=== PATIENT | male | born 1960 | race Caucasian/White ===

== ENCOUNTER → 2019-03-15 11:03 | Outpatient (CLI) | payer OTHER, MEDICAID, SELFPAY ==
[2018-04-09 16:08] VITALS: BMI 35.7
[2019-03-15 12:34] LABS: Hematocrit 48.5 % (41-53); Mean Corpuscular Hemoglobin 28.5 PG (26-34); Mean Corpuscular Volume 86.5 fL (80-100); Platelet Count 204 X10^3/uL (150-400); Red Cell Distribution Width 14.4 % (11.6-14.8); White Blood Cell Count 5.5 X10^3/uL (4.5-11.0)
[2019-03-15 12:38] LABS: Alanine Aminotransferase 38 IU/L (21-72); Albumin 4.7 g/dL (3.5-5.0); Albumin Globulin Ratio 1.6 (1.0-2.8); Alkaline Phosphatase 70 U/L (38-126); Aspartate Aminotransferase 30 IU/L (17-59); BUN Creatinine Ratio 21.1 (6-22); Bilirubin Total 0.5 mg/dL (0.2-1.3); Blood Urea Nitrogen 19 mg/dL (9-20); Calcium 9.3 mg/dL (8.4-10.2); Carbon Dioxide 28 mmol/L (22-32); Chloride 105 mmol/L (98-107); Cholesterol 150 mg/dL (140-199); Estimated Glomerular Filt Rate > 60.0 mL/min (>60); Glucose 100 mg/dL (70-100); HDL Cholesterol 50 mg/dL (40-60); HEMOLYSIS < 15 (0-50); LDL Cholesterol Calculated 72 mg/dL (<100); Potassium 3.8 mmol/L (3.4-5.1); Sodium 143 mmol/L (137-145); Total Protein 7.7 g/dL (6.3-8.2); Triglycerides 142 mg/dL (35-150)
[2019-03-15 12:54] LABS: Vitamin D 25 Hydroxy (D3) 29.7 ng/mL (30.0-100.0)
[2019-03-15 13:07] LABS: TSH w/ Reflex to FT4 1.45 uIU/mL (0.47-4.68)
[2019-03-15 13:24] LABS: Vitamin B12 413 pg/mL (239-931)
[2019-03-19 13:36] LABS: Lamotrigine Lamictal 2.2 mcg/mL (4.0-18.0)
[2019-03-20 16:47] LABS: Testosterone Free 34.8 pg/mL (35.0-155.0); Testosterone Total 201 ng/dL (250-1100)
== END ==
PROVIDERS: PCP Nurse Practitioner Family; Visit Provider Nurse Practitioner Family
DX: J44.9 Chronic obstructive pulmonary disease, unspecified (principal); R53.83 Other fatigue; E55.9 Vitamin D deficiency, unspecified; E78.2 Mixed hyperlipidemia; Z51.81 Encounter for therapeutic drug level monitoring
CPT/HCPCS: 36415; 80053; 80061; 80175; 82306; 82607; 84402; 84403; 84443; 85027

== ENCOUNTER → 2019-04-17 08:08 | Outpatient (CLI) | payer OTHER, MEDICAID, SELFPAY ==
[2018-04-09 16:08] VITALS: BMI 35.7
[2019-04-17 09:16] LABS: Luteinizing Hormone 3.35 mIU/mL
== END ==
PROVIDERS: PCP Nurse Practitioner Family; Visit Provider Nurse Practitioner Family
DX: R79.89 Other specified abnormal findings of blood chemistry (principal)
CPT/HCPCS: 36415; 83001; 83002; 84403

== ENCOUNTER → 2019-04-29 09:45 | Outpatient (CLI) | payer OTHER, MEDICAID, SELFPAY ==
[2018-04-09 16:08] VITALS: BMI 35.7
[2019-04-29 10:58] LABS: Prolactin 15.3 ng/mL (3.7-17.9)
[2019-04-29 11:12] LABS: Prostate Specific Antigen 0.832 ng/mL (0.10-4.00)
== END ==
PROVIDERS: Family Provider Nurse Practitioner Family; PCP Nurse Practitioner Family; Visit Provider Physician Assistant
DX: R79.89 Other specified abnormal findings of blood chemistry (principal)
CPT/HCPCS: 36415; 84146; 84153

== ENCOUNTER → 2019-08-27 07:08 | Outpatient (CLI) | payer OTHER, MEDICAID, SELFPAY ==
[2018-04-09 16:08] VITALS: BMI 35.7
[2019-08-27 08:28] LABS: Hematocrit 46.2 % (41-53); Hemoglobin 15.3 g/dL (13.5-17.5)
[2019-08-27 09:13] LABS: Cholesterol 196 mg/dL (140-199); HDL Cholesterol 50 mg/dL (40-60); LDL Cholesterol Calculated 111 mg/dL (<100); Triglycerides 173 mg/dL (35-150)
== END ==
PROVIDERS: Family Provider Nurse Practitioner Family; PCP Nurse Practitioner Family; Visit Provider Physician Assistant
DX: E29.1 Testicular hypofunction (principal)
CPT/HCPCS: 36415; 80061; 84153; 84402; 84403; 85014; 85018

== ENCOUNTER → 2020-05-11 08:50 | Outpatient (CLI) | payer OTHER, MEDICAID, SELFPAY ==
[2018-04-09 16:08] VITALS: BMI 35.7
[2020-05-11 11:24] LABS: Hematocrit 46.1 % (41-53); Hemoglobin 15.2 g/dL (13.5-17.5)
[2020-05-11 12:16] LABS: Cholesterol 142 mg/dL (140-199); HDL Cholesterol 53 mg/dL (40-60); LDL Cholesterol Calculated 60 mg/dL (<100); Triglycerides 146 mg/dL (35-150)
[2020-05-11 12:43] LABS: Prostate Specific Antigen 1.15 ng/mL (0.10-4.00)
[2020-05-11 12:46] LABS: Testosterone 139 ng/dL (71.8-623)
== END ==
PROVIDERS: Family Provider Nurse Practitioner Family; PCP Nurse Practitioner Family; Referring Provider Physician Assistant; Visit Provider Physician Assistant
DX: E29.1 Testicular hypofunction (principal)
CPT/HCPCS: 36415; 80061; 84153; 84403; 85014; 85018

== ENCOUNTER → 2020-09-10 08:08 | Outpatient (CLI) | payer OTHER, MEDICAID, SELFPAY ==
[2018-04-09 16:08] VITALS: BMI 35.7
[2020-09-10 09:16] LABS: Hematocrit 46.3 % (41-53); Hemoglobin 15.4 g/dL (13.5-17.5); Mean Corpuscular HGB Conc 33.4 % (30-36); Mean Corpuscular Hemoglobin 29.1 PG (26-34); Mean Corpuscular Volume 87.2 fL (80-100); Platelet Count 156 X10^3/uL (150-400); Red Blood Cell Count 5.31 X10^6/uL (4.5-5.9); Red Cell Distribution Width 13.9 % (11.6-14.8); White Blood Cell Count 5.2 X10^3/uL (4.5-11.0)
[2020-09-10 09:44] LABS: Alanine Aminotransferase 29 IU/L (<50); Albumin 4.1 g/dL (3.5-5.0); Albumin Globulin Ratio 1.5 (1.0-2.8); Alkaline Phosphatase 53 U/L (38-126); Aspartate Aminotransferase 37 IU/L (17-59); BUN Creatinine Ratio 20.7 (6-22); Bilirubin Total 0.9 mg/dL (0.2-1.3); Blood Urea Nitrogen 17 mg/dL (9-20); Calcium 8.7 mg/dL (8.4-10.2); Carbon Dioxide 23 mmol/L (22-32); Chloride 107 mmol/L (98-107); Cholesterol 196 mg/dL (140-199); Estimated Glomerular Filt Rate > 60.0 mL/min (>60); Globulin 2.8 g/dL (1.7-4.1); Glucose 91 mg/dL (80-110); HDL Cholesterol 50 mg/dL (40-60); LDL Cholesterol Calculated 117 mg/dL (<100); Sodium 137 mmol/L (137-145); Total Protein 6.9 g/dL (6.3-8.2); Triglycerides 143 mg/dL (35-150)
[2020-09-10 09:53] LABS: HEMOLYSIS 126 (0-50); Potassium 4.7 mmol/L (3.4-5.1)
[2020-09-13 14:08] LABS: Lamotrigine Lamictal <1.0 ug/mL (2.0-20.0)
== END ==
PROVIDERS: Family Provider Nurse Practitioner Family; PCP Nurse Practitioner Family; Referring Provider Nurse Practitioner Family; Visit Provider Nurse Practitioner Family
DX: J44.9 Chronic obstructive pulmonary disease, unspecified (principal); Z51.81 Encounter for therapeutic drug level monitoring; E78.2 Mixed hyperlipidemia
CPT/HCPCS: 36415; 80053; 80061; 80175; 85027

== ENCOUNTER → 2020-11-22 07:19 | Outpatient (CLI) | payer OTHER, MEDICAID, SELFPAY ==
[2018-04-09 16:08] VITALS: BMI 35.7
[2020-11-22 08:29] LABS: Hematocrit 45.4 % (41-53); Hemoglobin 15.5 g/dL (13.5-17.5)
[2020-11-22 08:46] LABS: Alanine Aminotransferase 25 IU/L (<50); Albumin 4.4 g/dL (3.5-5.0); Albumin Globulin Ratio 1.6 (1.0-2.8); Alkaline Phosphatase 68 U/L (38-126); Aspartate Aminotransferase 26 IU/L (17-59); BUN Creatinine Ratio 20.4 (6-22); Bilirubin Total 0.4 mg/dL (0.2-1.3); Blood Urea Nitrogen 19 mg/dL (9-20); Calcium 9.2 mg/dL (8.4-10.2); Carbon Dioxide 28 mmol/L (22-32); Chloride 104 mmol/L (98-107); Cholesterol 168 mg/dL (140-199); Estimated Glomerular Filt Rate > 60.0 mL/min (>60); Globulin 2.8 g/dL (1.7-4.1); Glucose 99 mg/dL (80-110); HDL Cholesterol 49 mg/dL (40-60); HEMOLYSIS < 15 (0-50); LDL Cholesterol Calculated 93 mg/dL (<100); Potassium 3.8 mmol/L (3.4-5.1); Sodium 138 mmol/L (137-145); Total Protein 7.2 g/dL (6.3-8.2); Triglycerides 130 mg/dL (35-150)
[2020-11-22 09:20] LABS: Testosterone 234 ng/dL (71.8-623)
[2020-11-22 09:36] LABS: Vitamin B12 Reflex MMA if <400 396 pg/mL (239-931)
[2020-11-22 19:22] LABS: TSH w/ Reflex to FT4 2.55 uIU/mL (0.47-4.68)
[2020-11-25 00:16] LABS: Methylmalonic Acid,Serum 215 nmol/L (0-378)
== END ==
PROVIDERS: Family Provider Nurse Practitioner Family; PCP Nurse Practitioner Family; Referring Provider Nurse Practitioner Family; Visit Provider Physician Assistant Medical
DX: R79.89 Other specified abnormal findings of blood chemistry (principal); R53.83 Other fatigue
CPT/HCPCS: 36415; 80053; 80061; 82607; 83921; 84153; 84403; 84443; 85014; 85018

== ENCOUNTER → 2020-11-30 07:11 | Outpatient (CLI) | payer OTHER, MEDICAID, SELFPAY ==
[2018-04-09 16:08] VITALS: BMI 35.7
[2020-12-01 08:16] LABS: Fecal Immunochemical Test Negative (Negative)
== END ==
PROVIDERS: Family Provider Nurse Practitioner Family; PCP Nurse Practitioner Family; Referring Provider Nurse Practitioner Family; Visit Provider Nurse Practitioner Family
DX: R53.83 Other fatigue (principal)
CPT/HCPCS: 82274

== ENCOUNTER → 2021-04-22 12:05 | Outpatient (CLI) | payer OTHER, MEDICAID, SELFPAY ==
[2018-04-09 16:08] VITALS: BMI 35.7
--- NOTE | 2021-04-22 12:07 | DI.RAD.S_ITS ---
PROCEDURE: XR LUMBAR SPINE 2-3V INDICATIONS: low back pain with L sciatica TECHNIQUE: 3 views of the lumbar spine were acquired. COMPARISON: None. FINDINGS: Bones: No acute fracture identified. Straightening of the normal lordotic curvature. Multilevel degenerative endplate sclerosis and spurring. Diffuse facet arthropathy. Moderate narrowing of the L4-L5 and L5-S1 disc spaces. Mild narrowing of the remaining lumbar disc spaces. Levoscoliosis is noted centered at L3. Soft tissues: Overlying bowel gas pattern is normal. No suspicious soft tissue calcifications. IMPRESSION: Diffuse lumbar spondylitic changes most pronounced at L4-L5 and L5-S1 as above Facet arthropathy Levoscoliosis. Dictated by: Cameron Schaeffer M.D. on 04/22/2021 at 14:18 Approved by: Cameron Schaeffer M.D. on 04/22/2021 at 14:20
--- NOTE | 2021-04-22 12:07 | DI.RAD.S_ITS ---
P ROCEDURE: XR SACRUM COCCYX MIN 2V INDICATIONS: low back pain with sciatica TECHNIQUE: 3 views of the sacrum and coccyx acquired. COMPARISON: None. FINDINGS: Bones: No acute fracture identified. Lower lumbar spondylitic changes and facet arthropathy. Degenerative sclerosis and spurring at the sacroiliac joints without ankylosis or definite erosions, and no joint space narrowing. Mild bilateral hip joint degeneration. Partially visualized scoliosis. Soft tissues: Visualized bowel gas pattern is normal. No suspicious soft tissue densities. IMPRESSION: Mild bilateral hip osteoarthritis. Lumbar spondylitic changes and facet arthropathy Partially visualized scoliosis Dictated by: Cameron Schaeffer M.D. on 04/22/2021 at 14:29 Approved by: Cameron Schaeffer M.D. on 04/22/2021 at 14:33
== END ==
PROVIDERS: Family Provider Nurse Practitioner Family; PCP Nurse Practitioner Family; Referring Provider Nurse Practitioner Family; Visit Provider Nurse Practitioner Family
DX: M54.32 Sciatica, left side (principal); M47.816 Spondylosis without myelopathy or radiculopathy, lumbar region; M47.817 Spondylosis without myelopathy or radiculopathy, lumbosacral region; M16.0 Bilateral primary osteoarthritis of hip
CPT/HCPCS: 72100; 72220

== ENCOUNTER → 2021-06-02 15:26 | Outpatient (CLI) | payer OTHER, MEDICAID, SELFPAY ==
[2018-04-09 16:08] VITALS: BMI 35.7
[2021-06-02 16:26] LABS: COVID19 -Nasal RAPID Negative (Negative)
== END ==
PROVIDERS: Family Provider Nurse Practitioner Family; PCP Nurse Practitioner Family; Visit Provider Nurse Practitioner
DX: R05 Cough (principal); R53.83 Other fatigue; R06.02 Shortness of breath; R09.81 Nasal congestion; Z20.822 Contact with and (suspected) exposure to COVID-19
CPT/HCPCS: 87635

== ENCOUNTER 2021-06-09 14:00 | Outpatient (RCR) | payer OTHER, MEDICAID, SELFPAY ==
[2018-04-09 16:08] VITALS: BMI 35.7
--- NOTE | 2021-05-02 15:10 | PT.OIE ---
Current Diagnoses Unilateral primary osteoarthritis, unspecified hip (05/02/21) Sciatica, left side (05/02/21) Past Medical History (Last Updated 04/20/21 @ 16:21 by SERENITY Campbell) Abnormal chest x-ray (~2016) Anxiety Benign familial tremor (~2014) Bipolar disease, chronic Chicken pox (~1969) COPD (chronic obstructive pulmonary disease) (~2017) Depression Fractures History of recurrent ear infection (~1964) History of surgery (~2009) Kidney stones (~1994) Low testosterone in male Measles (~1966) Mixed hyperlipidemia Mumps (~1965) Sciatica of left side Seasonal allergies Sleep apnea (~2014) Stasis dermatitis Substance abuse Past Surgical History (Last Updated 04/04/19 @ 20:49 by Salma Reyes) Anesthesia History of surgery (~2009) Mass (~2015) Visit Care Team Role Provider Type SERENITY Campbell Attending Provider Advanced Echocardiograph Technician Family Provider Primary Care Provider Referring Provider Specialty: Family Practice Address: [address] [place] [address] Email: [email or web address] Physical Therapy Initial Evaluation PT-OP-A Visit Information Start: 05/02/21 11:54 Freq: Status: Active Protocol: Document 05/02/21 13:30 AMB (Rec: 05/02/21 15:10 AMB [email or web address]) Out-Patient Physical Therapy Visit Information Visit Information Visit Type Initial Evaluation Visit Note 0/24 units Visit Start Time 13:30 Visit Stop Time 14:15 Total Visit Minutes 45 Visit Number 1 PT-OP-B Current Condition Start: 05/02/21 11:54 Freq: Status: Active Protocol: Document 05/02/21 13:30 AMB (Rec: 05/02/21 15:10 AMB [email or web address]) Current Condition History of Current Condition Onset Date a couple months, insidious onset Current Complaints L sciatica with numbness/ tingling History of Current Condition Migel states twisting, rolling over to the right, and moving to sit to stand increase his pain and numbness down the back of his left leg . Coughing also makes it worse. Pain was really bad for a couple months until got pain meds from doctor and it is better now, although numbness remains. Did have a similar problem to this years ago and it got better on its own after a few months. Long history of substance/alcohol abuse but has been clean for 10 years. Lives with his elderly mom, on SS disability, previously in landscaping with lots of physical labor. Prior Treatments and Tests X-rays showed disc space narrowing and levoscoliosis Prior Functional Status Baseline Function- ADL's Independent Baseline Function- Mobility Independent Current Functional Impairments (Reported) Functional Limitations- ADL's Difficulty with moving from sit to stand, rolling over in bed, numbness makes walking challenging, does walk without AD Personal Factors Other Personal Factors That May Effect Hx of substance abuse, Therapy/Recovery depression, HTN, history of diaphragm surgery PT-OP-C Subjective Start: 05/02/21 11:54 Freq: Status: Active Protocol: Document 05/02/21 13:30 AMB (Rec: 05/02/21 15:10 AMB [email or web address]) OP-PT Pain Assessment Comments Pain Comments 2/10 current in seated, 5/10 at worst in last week. 6-7/10 pain at worst PT-OP-G Mobility & Gait Start: 05/02/21 11:54 Freq: Status: Active Protocol: Document 05/02/21 13:30 AMB (Rec: 05/02/21 15:10 AMB [email or web address]) OP Mobility Evaluation Bed Mobility Rolling Pt tends to twist spine, educated in log roll at eval Supine to and from Sit Cues not to perform sit up, pt can perform log roll at eval after cues OP Gait Assessment Comments Gait Comments Pt with antalgic gait, but not foot drop noted with gait with short distances, would need to look at gait for longer distances to completely rule out PT-OP-J Posture/Palpation/Skin Start: 05/02/21 11:54 Freq: Status: Active Protocol: Document 05/02/21 13:30 AMB (Rec: 05/02/21 15:10 AMB [email or web address]) Posture Evaluation Comments Posture Comments Scoliosis convex to L Palpation Assessment Location One Palpation Location Low back/left glutes Palpation Findings Soft Tissue Tightness,Spasm, Muscle Guarding,Tenderness Palpation Details Pain with palpation at lumbar spine and gluteals PT-OP-K Range of Motion Start: 05/02/21 11:54 Freq: Status: Active Protocol: Document 05/02/21 13:30 AMB (Rec: 05/02/21 15:10 AMB [email or web address]) Lumbar Spine Range of Motion Lumbar Spine Active Degrees Testing Position Standing Flexion 30 Extension 5 Comments pain with extension PT-OP-L Special Tests Start: 05/02/21 11:54 Freq: Status: Active Protocol: Document 05/02/21 13:30 AMB (Rec: 05/02/21 15:10 AMB [email or web address]) Special Tests Lumbar Spine Special Tests Straight Leg Raise Test Results + Comments at 30 degrees PT-OP-M Strength Start: 05/02/21 11:54 Freq: Status: Active Protocol: Document 05/02/21 13:30 AMB (Rec: 05/02/21 15:10 AMB [email or web address]) Hip Strength Hip Manual Muscle Testing Left Flexion (L2) 4+ Good+ Extension (S1) 4 Good Abduction 4 Good Knee Strength Knee Manual Muscle Testing Left Flexion (S2) 4+ Good+ Extension (L3) 4+ Good+ Ankle/Foot Strength Ankle and Foot Manual Muscle Testing Left Dorsiflexion (L4) 4+ Good+ Plantarflexion (S1) 4+ Good+ PT-OP-Q Treatments Start: 05/02/21 11:54 Freq: Status: Active Protocol: Document 05/02/21 13:30 AMB (Rec: 05/02/21 15:10 AMB [email or web address]) Therapeutic Exercises Supine Exercises active hamstring Comments with PF and DF, tolerated in supine, increased pain in seated TA stabilization Comments in hooklying, cues for breathing Manual Therapy Treatment Manual Traction long axis Details L LE Comments decreased sx slightly PT-OP-T Assessment and Plan Start: 05/02/21 11:54 Freq: Status: Active Protocol: Document 05/02/21 13:30 AMB (Rec: 05/02/21 15:10 AMB [email or web address]) Physical Therapy Assessment Rehab Potential Rehabilitation Potential Good Evaluation Complexity Number of Personal Factors/Comorbidities 1-2 Number of Body Systems Impaired 4 or More Clinical Presentation at Evaluation Evolving Impairments Impairments Activity Tolerance,Gait,Pain, Posture,ROM,Sensation,Strength Goals Two Impairment pain Short Term Goal (STG) Migel will roll over in bed without an increase in pain. STG Duration 4 weeks Detention Goal (LTG) Migel will move from sit to stand with 2/10 pain or less. LTG Duration 8 weeks One Impairment ROM Short Term Goal (STG) Migel will improve his left straight leg raise to at least 45 degrees without pain to show decreased neural tension/ pain. STG Duration 4 weeks Project Lead Goal (LTG) Migel will be independent with a HEP for core stability and flexibility. LTG Duration 6 weeks Assessment Summary Assessment Migel attends physical therapy with signs and symptoms consistent with nerve compression from lumbar disc degeneration. While his pain is fortunately decreased after medication from his PCP, he continues to have pain and significant numbness in the left leg. He had poor body mechanics at evaluation, and would benefit from core stabilization training, training in body mechanics, and manual therapy to decrease the stress on his discs given his known scoliosis and history of manual labor. Physical Therapy Plan Frequency and Duration Frequency of Treatment 2x/Week Duration of Treatment 6 weeks Plan of Care Start Date 05/02/21 Plan of Care End Date 06/13/21 Therapeutic Interventions Therapeutic Interventions Gait Training,Home Exercise Program,Joint Mobilizations, Manual Therapy,Neuromuscular Re-education,Self-Care/Home Management,Therapeutic Activities,Therapeutic Exercises Modalities Cold Pack/Ice Massage,Electric Stimulation,Hot Packs, Ultrasound Next Visit Focus/Plan Next Note Type Treatment Note Next Visit Plan Progress core stability, manual therapy and HEP for lumbar decompression, working in neutral and flexion, avoiding extension for now
--- NOTE | 2021-05-02 15:11 | PT.OPPOC ---
Physical, Occupational & Speech Therapy At Located Within [facility] Current Diagnoses Unilateral primary osteoarthritis, unspecified hip (05/02/21) Sciatica, left side (05/02/21) Visit Care Team Role Provider Type SERENITY Campbell Attending Provider Advanced Wrapper Sheeter Family Provider Primary Care Provider Referring Provider Specialty: Family Practice Address: [address] [place] [address], [facility] Email: [email or web address] Plan Of Care PT-OP-T Assessment and Plan Start: 05/02/21 11:54 Freq: Status: Active Protocol: Document 05/02/21 13:30 AMB (Rec: 05/02/21 15:10 AMB [email or web address]) Physical Therapy Assessment Rehab Potential Rehabilitation Potential Good Evaluation Complexity Number of Personal Factors/Comorbidities 1-2 Number of Body Systems Impaired 4 or More Clinical Presentation at Evaluation Evolving Impairments Impairments Activity Tolerance,Gait,Pain, Posture,ROM,Sensation,Strength Goals Two Impairment pain Short Term Goal (STG) Migel will roll over in bed without an increase in pain. STG Duration 4 weeks Reliner Goal (LTG) Migel will move from sit to stand with 2/10 pain or less. LTG Duration 8 weeks One Impairment ROM Short Term Goal (STG) Migel will improve his left straight leg raise to at least 45 degrees without pain to show decreased neural tension/ pain. STG Duration 4 weeks Fdc Goal (LTG) Migel will be independent with a HEP for core stability and flexibility. LTG Duration 6 weeks Assessment Summary Assessment Migel attends physical therapy with signs and symptoms consistent with nerve compression from lumbar disc degeneration. While his pain is fortunately decreased after medication from his PCP, he continues to have pain and significant numbness in the left leg. He had poor body mechanics at evaluation, and would benefit from core stabilization training, training in body mechanics, and manual therapy to decrease the stress on his discs given his known scoliosis and history of manual labor. Physical Therapy Plan Frequency and Duration Frequency of Treatment 2x/Week Duration of Treatment 6 weeks Plan of Care Start Date 05/02/21 Plan of Care End Date 06/13/21 Therapeutic Interventions Therapeutic Interventions Gait Training,Home Exercise Program,Joint Mobilizations, Manual Therapy,Neuromuscular Re-education,Self-Care/Home Management,Therapeutic Activities,Therapeutic Exercises Modalities Cold Pack/Ice Massage,Electric Stimulation,Hot Packs, Ultrasound Next Visit Focus/Plan Next Note Type Treatment Note Next Visit Plan Progress core stability, manual therapy and HEP for lumbar decompression, working in neutral and flexion, avoiding extension for now Plan of Care Dates Plan of Care Start Date 05/02/21 Plan of Care End Date 06/13/21 Electronically Signed by: Zoila Reid, PT 05/02/21 0563 Please Sign and Return: I have reviewed this Plan of Care and certify that the skilled therapy services above are required to meet the patient?s needs. Physician Signature Date Printed Name and Credentials Clinical Instructor Signature Printed Name and Credentials
--- NOTE | 2021-05-06 13:46 | PT.OTN ---
Current Diagnoses Unilateral primary osteoarthritis, unspecified hip (05/06/21) Sciatica, left side (05/06/21) Physical Therapy Treatment Note PT-OP-A Visit Information Start: 05/02/21 11:54 Freq: Status: Active Protocol: Document 05/06/21 13:03 SP (Rec: 05/06/21 13:49 SP [id number]) Out-Patient Physical Therapy Visit Information Visit Information Visit Type Treatment Note Visit Note 10/17 units Visit Start Time 13:03 Visit Stop Time 13:46 Total Visit Minutes 43 Visit Number 2 Number of HAIR SPINNER Visits 1 PT-OP-B Current Condition Start: 05/02/21 11:54 Freq: Status: Active Protocol: Document 05/02/21 13:30 AMB (Rec: 05/02/21 15:10 AMB [email or web address]) Current Condition History of Current Condition Onset Date a couple months, insidious onset Current Complaints L sciatica with numbness/ tingling History of Current Condition Migel states twisting, rolling over to the right, and moving to sit to stand increase his pain and numbness down the back of his left leg . Coughing also makes it worse. Pain was really bad for a couple months until got pain meds from doctor and it is better now, although numbness remains. Did have a similar problem to this years ago and it got better on its own after a few months. Long history of substance/alcohol abuse but has been clean for 10 years. Lives with his elderly mom, on SS disability, previously in [employer] with lots of physical labor. Prior Treatments and Tests X-rays showed disc space narrowing and levoscoliosis Prior Functional Status Baseline Function- ADL's Independent Baseline Function- Mobility Independent Current Functional Impairments (Reported) Functional Limitations- ADL's Difficulty with moving from sit to stand, rolling over in bed, numbness makes walking challenging, does walk without AD Personal Factors Other Personal Factors That May Effect Hx of substance abuse, Therapy/Recovery depression, HTN, history of diaphragm surgery PT-OP-C Subjective Start: 05/02/21 11:54 Freq: Status: Active Protocol: Document 05/06/21 13:03 SP (Rec: 05/06/21 13:49 SP [id number]) OP-PT Subjective Patient Comments Patient Comments Pt stated today his L hip pain almost gone and good past few days. Still L leg still numb feeling whole leg with more concentration whole but cheek. PT-OP-G Mobility & Gait Start: 05/02/21 11:54 Freq: Status: Active Protocol: Document 05/02/21 13:30 AMB (Rec: 05/02/21 15:10 AMB [email or web address]) OP Mobility Evaluation Bed Mobility Rolling Pt tends to twist spine, educated in log roll at eval Supine to and from Sit Cues not to perform sit up, pt can perform log roll at eval after cues OP Gait Assessment Comments Gait Comments Pt with antalgic gait, but not foot drop noted with gait with short distances, would need to look at gait for longer distances to completely rule out PT-OP-J Posture/Palpation/Skin Start: 05/02/21 11:54 Freq: Status: Active Protocol: Document 05/02/21 13:30 AMB (Rec: 05/02/21 15:10 AMB [email or web address]) Posture Evaluation Comments Posture Comments Scoliosis convex to L Palpation Assessment Location One Palpation Location Low back/left glutes Palpation Findings Soft Tissue Tightness,Spasm, Muscle Guarding,Tenderness Palpation Details Pain with palpation at lumbar spine and gluteals PT-OP-K Range of Motion Start: 05/02/21 11:54 Freq: Status: Active Protocol: Document 05/02/21 13:30 AMB (Rec: 05/02/21 15:10 AMB [email or web address]) Lumbar Spine Range of Motion Lumbar Spine Active Degrees Testing Position Standing Flexion 30 Extension 5 Comments pain with extension PT-OP-L Special Tests Start: 05/02/21 11:54 Freq: Status: Active Protocol: Document 05/02/21 13:30 AMB (Rec: 05/02/21 15:10 AMB [email or web address]) Special Tests Lumbar Spine Special Tests Straight Leg Raise Test Results + Comments at 30 degrees PT-OP-M Strength Start: 05/02/21 11:54 Freq: Status: Active Protocol: Document 05/02/21 13:30 AMB (Rec: 05/02/21 15:10 AMB [email or web address]) Hip Strength Hip Manual Muscle Testing Left Flexion (L2) 4+ Good+ Extension (S1) 4 Good Abduction 4 Good Knee Strength Knee Manual Muscle Testing Left Flexion (S2) 4+ Good+ Extension (L3) 4+ Good+ Ankle/Foot Strength Ankle and Foot Manual Muscle Testing Left Dorsiflexion (L4) 4+ Good+ Plantarflexion (S1) 4+ Good+ PT-OP-Q Treatments Start: 05/02/21 11:54 Freq: Status: Active Protocol: Document 05/06/21 13:03 SP (Rec: 05/06/21 13:49 SP [id number]) Therapeutic Exercises Supine Exercises leg lengthener Supine Exercise Name LEs //- added to HEP no pain or tingling Side bilateral Resistance AROM- L more than R Comments cued netural pelvic, push heel away from hip but supported on table- pirformis stretch Supine Exercise Name foot over opposite knee relax, then hip IR stretch Side left Reps/Minutes 30 x2 Comments cued use UE for support and active hamstring Supine Exercise Name HEP review Side left Equipment Used towel hold behind thigh for support Reps/Minutes 5 PF/DF AP x3 sets Comments cued set up and proper form, tolerated in supine TA stabilization Supine Exercise Name TA and pelvic tilts Reps/Minutes 10 hold x10 Comments PPT>neutral pelvis w/ TA awareness, in hooklying, cues for breathing Standing Exercises self STMs Standing Exercise Name racquetball roll pirformis roll at wall Reps/Minutes 30 sec but within tolerance- no change in tingling into leg , always stand Comments good feedback response, loosens up muscle but does still feel tingling Manual Therapy Treatment Soft Tissue Mobilization L LE STMs Body Location pirformis, glut med, TFL Mobilization Type Rolling,Strumming,Sustained Pressure Intensity/Depth Moderate Body Position Sidelying Comments good feedback response PT-OP-T Assessment and Plan Start: 05/02/21 11:54 Freq: Status: Active Protocol: Document 05/06/21 13:03 SP (Rec: 05/06/21 13:49 SP [id number]) Physical Therapy Assessment Goals Two Impairment pain Short Term Goal (STG) Migel will roll over in bed without an increase in pain. STG Duration 4 weeks Correction Goal (LTG) Migel will move from sit to stand with 2/10 pain or less. LTG Duration 8 weeks One Impairment ROM Short Term Goal (STG) Migel will improve his left straight leg raise to at least 45 degrees without pain to show decreased neural tension/ pain. STG Duration 4 weeks Correction Goal (LTG) Migel will be independent with a HEP for core stability and flexibility. LTG Duration 6 weeks Assessment Summary Assessment Pt responded well to manual, no worsening response to self STMs racquetball on wall for self application, states not pain but still has numbess in LLE but constant when ever standing and WB on LLE. Pt found best relief with long leg axis manual traction and good carryover to initiated leg lengtheners no pain or LLE tingling so added to HEP. Reviewed HEP TA pelvic tilts, neutral pelvis and HS stretching with use of towel to grasp posterior leg better and added pirformis stretch with noted tightness initially then lessened L hip tightness . Pt walked with decreased antalgic gait leaving. Physical Therapy Plan Frequency and Duration Frequency of Treatment 2x/Week Duration of Treatment 6 weeks Plan of Care Start Date 05/02/21 Plan of Care End Date 06/13/21 Therapeutic Interventions Therapeutic Interventions Gait Training,Home Exercise Program,Joint Mobilizations, Manual Therapy,Neuromuscular Re-education,Self-Care/Home Management,Therapeutic Activities,Therapeutic Exercises Modalities Cold Pack/Ice Massage,Electric Stimulation,Hot Packs, Ultrasound Next Visit Focus/Plan Next Note Type Treatment Note Next Visit Plan Assess response to HS with AP, piformis stretch, TA leg lengtheners and self STMs w/ racketball on wall last tx. POC: Progress core stability, manual therapy and HEP for lumbar decompression, working in neutral and flexion, avoiding extension for now
--- NOTE | 2021-05-09 14:41 | PT.OTN ---
Current Diagnoses Unilateral primary osteoarthritis, unspecified hip (05/09/21) Sciatica, left side (05/09/21) Physical Therapy Treatment Note PT-OP-A Visit Information Start: 05/02/21 11:54 Freq: Status: Active Protocol: Document 05/09/21 13:30 AMB (Rec: 05/09/21 14:09 AMB [id number]) Out-Patient Physical Therapy Visit Information Visit Information Visit Type Treatment Note Visit Note 624 units today Visit Start Time 13:30 Visit Stop Time 14:15 Total Visit Minutes 45 Visit Number 3 Number of CUSTOMER SALES REPRESENTATIVE Visits 0 PT-OP-B Current Condition Start: 05/02/21 11:54 Freq: Status: Active Protocol: Document 05/02/21 13:30 AMB (Rec: 05/02/21 15:10 AMB [email or web address]) Current Condition History of Current Condition Onset Date a couple months, insidious onset Current Complaints L sciatica with numbness/ tingling History of Current Condition Migel states twisting, rolling over to the right, and moving to sit to stand increase his pain and numbness down the back of his left leg . Coughing also makes it worse. Pain was really bad for a couple months until got pain meds from doctor and it is better now, although numbness remains. Did have a similar problem to this years ago and it got better on its own after a few months. Long history of substance/alcohol abuse but has been clean for 10 years. 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 Prior Treatments and Tests X-rays showed disc space narrowing and levoscoliosis Prior Functional Status Baseline Function- ADL's Independent Baseline Function- Mobility Independent Current Functional Impairments (Reported) Functional Limitations- ADL's Difficulty with moving from sit to stand, rolling over in bed, numbness makes walking challenging, does walk without AD Personal Factors Other Personal Factors That May Effect Hx of substance abuse, Therapy/Recovery depression, HTN, history of diaphragm surgery PT-OP-C Subjective Start: 05/02/21 11:54 Freq: Status: Active Protocol: Document 05/09/21 13:30 AMB (Rec: 05/09/21 14:35 AMB [id number]) OP-PT Subjective Patient Comments Patient Comments Migel states the pain is getting better, continues to note numbness, worst in the left foot with extended standing/walking. PT-OP-G Mobility & Gait Start: 05/02/21 11:54 Freq: Status: Active Protocol: Document 05/02/21 13:30 AMB (Rec: 05/02/21 15:10 AMB [email or web address]) OP Mobility Evaluation Bed Mobility Rolling Pt tends to twist spine, educated in log roll at eval Supine to and from Sit Cues not to perform sit up, pt can perform log roll at eval after cues OP Gait Assessment Comments Gait Comments Pt with antalgic gait, but not foot drop noted with gait with short distances, would need to look at gait for longer distances to completely rule out PT-OP-J Posture/Palpation/Skin Start: 05/02/21 11:54 Freq: Status: Active Protocol: Document 05/02/21 13:30 AMB (Rec: 05/02/21 15:10 AMB [email or web address]) Posture Evaluation Comments Posture Comments Scoliosis convex to L Palpation Assessment Location One Palpation Location Low back/left glutes Palpation Findings Soft Tissue Tightness,Spasm, Muscle Guarding,Tenderness Palpation Details Pain with palpation at lumbar spine and gluteals PT-OP-K Range of Motion Start: 05/02/21 11:54 Freq: Status: Active Protocol: Document 05/02/21 13:30 AMB (Rec: 05/02/21 15:10 AMB [email or web address]) Lumbar Spine Range of Motion Lumbar Spine Active Degrees Testing Position Standing Flexion 30 Extension 5 Comments pain with extension PT-OP-L Special Tests Start: 05/02/21 11:54 Freq: Status: Active Protocol: Document 05/02/21 13:30 AMB (Rec: 05/02/21 15:10 AMB [email or web address]) Special Tests Lumbar Spine Special Tests Straight Leg Raise Test Results + Comments at 30 degrees PT-OP-M Strength Start: 05/02/21 11:54 Freq: Status: Active Protocol: Document 05/02/21 13:30 AMB (Rec: 05/02/21 15:10 AMB [email or web address]) Hip Strength Hip Manual Muscle Testing Left Flexion (L2) 4+ Good+ Extension (S1) 4 Good Abduction 4 Good Knee Strength Knee Manual Muscle Testing Left Flexion (S2) 4+ Good+ Extension (L3) 4+ Good+ Ankle/Foot Strength Ankle and Foot Manual Muscle Testing Left Dorsiflexion (L4) 4+ Good+ Plantarflexion (S1) 4+ Good+ PT-OP-Q Treatments Start: 05/02/21 11:54 Freq: Status: Active Protocol: Document 05/09/21 13:30 AMB (Rec: 05/09/21 14:09 AMB [id number]) Therapeutic Exercises Supine Exercises active hamstring Supine Exercise Name HEP review Side left Equipment Used towel hold behind thigh for support Reps/Minutes 5 PF/DF AP x3 sets Comments cued set up and proper form, tolerated in supine TA stabilization Supine Exercise Name TA and pelvic tilts Reps/Minutes 10 hold x10 Comments PPT>neutral pelvis w/ TA awareness, in hooklying, cues for breathing Sidelying Exercises clamshell Reps/Minutes 10 Sitting Exercises 1 Sitting Exercise Name sit to stand Reps/Minutes 10 Comments with TA stabilization Manual Therapy Treatment Soft Tissue Mobilization L LE STMs Mobilization Type Sustained Pressure Manual Traction long axis Details L LE Comments decreased sx slightly PT-OP-T Assessment and Plan Start: 05/02/21 11:54 Freq: Status: Active Protocol: Document 05/09/21 13:30 AMB (Rec: 05/09/21 14:35 AMB [id number]) Physical Therapy Assessment Goals Two Impairment pain Short Term Goal (STG) Migel will roll over in bed without an increase in pain. STG Duration 4 weeks Mcfp Goal (LTG) Migel will move from sit to stand with 2/10 pain or less. LTG Duration 8 weeks One Impairment ROM Short Term Goal (STG) Migel will improve his left straight leg raise to at least 45 degrees without pain to show decreased neural tension/ pain. STG Duration 4 weeks It Security Analyst Goal (LTG) Migel will be independent with a HEP for core stability and flexibility. LTG Duration 6 weeks Assessment Summary Assessment Migel continued to have pain with rolling over but decreased in comparison to at eval, encouraged TA stabilization during functional activities (rolling sit to stand). Pt did have increased numbness with walking just 200ft, educated to try to avoid quick movements of the spine and to be careful ambulating over uneven terrain while dealing with numbness in foot. Physical Therapy Plan Next Visit Focus/Plan Next Note Type Treatment Note Next Visit Plan Assess pt's tolerance to sit to stand and clamshell, pt had not yet gotten a ball for selft STM
--- NOTE | 2021-05-12 13:45 | PT.OTN ---
Current Diagnoses Unilateral primary osteoarthritis, unspecified hip (05/12/21) Sciatica, left side (05/12/21) Physical Therapy Treatment Note PT-OP-A Visit Information Start: 05/02/21 11:54 Freq: Status: Active Protocol: Document 05/12/21 13:03 SP (Rec: 05/12/21 15:15 SP [id number]) Out-Patient Physical Therapy Visit Information Visit Information Visit Type Treatment Note Visit Start Time 13:03 Visit Stop Time 13:45 Total Visit Minutes 42 Visit Number 4 Number of STAYING MACHINE OPERATOR Visits 1 PT-OP-B Current Condition Start: 05/02/21 11:54 Freq: Status: Active Protocol: Document 05/02/21 13:30 AMB (Rec: 05/02/21 15:10 AMB [email or web address]) Current Condition History of Current Condition Onset Date a couple months, insidious onset Current Complaints L sciatica with numbness/ tingling History of Current Condition Migel states twisting, rolling over to the right, and moving to sit to stand increase his pain and numbness down the back of his left leg . Coughing also makes it worse. Pain was really bad for a couple months until got pain meds from doctor and it is better now, although numbness remains. Did have a similar problem to this years ago and it got better on its own after a few months. Long history of substance/alcohol abuse but has been clean for 10 years. 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 Prior Treatments and Tests X-rays showed disc space narrowing and levoscoliosis Prior Functional Status Baseline Function- ADL's Independent Baseline Function- Mobility Independent Current Functional Impairments (Reported) Functional Limitations- ADL's Difficulty with moving from sit to stand, rolling over in bed, numbness makes walking challenging, does walk without AD Personal Factors Other Personal Factors That May Effect Hx of substance abuse, Therapy/Recovery depression, HTN, history of diaphragm surgery PT-OP-C Subjective Start: 05/02/21 11:54 Freq: Status: Active Protocol: Document 05/12/21 13:03 SP (Rec: 05/12/21 15:15 SP [id number]) OP-PT Subjective Patient Comments Patient Comments Pt reported past few days noticed hasn't had any pain and tingling is alot less. I can't remember what it is like without pain but am being aware not to over do activities to go backwards. Pt stated no pain with added sit<> stand and clamshell added last tx. Patient Reported Progress Improving PT-OP-G Mobility & Gait Start: 05/02/21 11:54 Freq: Status: Active Protocol: Document 05/02/21 13:30 AMB (Rec: 05/02/21 15:10 AMB [email or web address]) OP Mobility Evaluation Bed Mobility Rolling Pt tends to twist spine, educated in log roll at eval Supine to and from Sit Cues not to perform sit up, pt can perform log roll at eval after cues OP Gait Assessment Comments Gait Comments Pt with antalgic gait, but not foot drop noted with gait with short distances, would need to look at gait for longer distances to completely rule out PT-OP-J Posture/Palpation/Skin Start: 05/02/21 11:54 Freq: Status: Active Protocol: Document 05/02/21 13:30 AMB (Rec: 05/02/21 15:10 AMB [email or web address]) Posture Evaluation Comments Posture Comments Scoliosis convex to L Palpation Assessment Location One Palpation Location Low back/left glutes Palpation Findings Soft Tissue Tightness,Spasm, Muscle Guarding,Tenderness Palpation Details Pain with palpation at lumbar spine and gluteals PT-OP-K Range of Motion Start: 05/02/21 11:54 Freq: Status: Active Protocol: Document 05/02/21 13:30 AMB (Rec: 05/02/21 15:10 AMB [email or web address]) Lumbar Spine Range of Motion Lumbar Spine Active Degrees Testing Position Standing Flexion 30 Extension 5 Comments pain with extension PT-OP-L Special Tests Start: 05/02/21 11:54 Freq: Status: Active Protocol: Document 05/02/21 13:30 AMB (Rec: 05/02/21 15:10 AMB [email or web address]) Special Tests Lumbar Spine Special Tests Straight Leg Raise Test Results + Comments at 30 degrees PT-OP-M Strength Start: 05/02/21 11:54 Freq: Status: Active Protocol: Document 05/02/21 13:30 AMB (Rec: 05/02/21 15:10 AMB [email or web address]) Hip Strength Hip Manual Muscle Testing Left Flexion (L2) 4+ Good+ Extension (S1) 4 Good Abduction 4 Good Knee Strength Knee Manual Muscle Testing Left Flexion (S2) 4+ Good+ Extension (L3) 4+ Good+ Ankle/Foot Strength Ankle and Foot Manual Muscle Testing Left Dorsiflexion (L4) 4+ Good+ Plantarflexion (S1) 4+ Good+ PT-OP-Q Treatments Start: 05/02/21 11:54 Freq: Status: Active Protocol: Document 05/12/21 13:03 SP (Rec: 05/12/21 15:15 SP [id number]) Therapeutic Exercises Supine Exercises leg lengthener Supine Exercise Name LEs //- reviewed HEP no pain or tingling Side bilateral Resistance AROM- L more than R Reps/Minutes x5- very little tingling in bottom L foot alot better Comments cued netural pelvic, push heel away from hip but supported on table active hamstring Supine Exercise Name HEP review Side left Equipment Used towel hold behind thigh for support Reps/Minutes 5 PF/DF AP x3 sets Comments cued set up and proper form, tolerated in supine TA stabilization Supine Exercise Name TA and pelvic tilts Reps/Minutes 10 hold x10 Comments PPT>neutral pelvis w/ TA awareness, in hooklying, cues for breathing Sidelying Exercises QL stretch Sidelying Exercise Name bottom leg bent, top leg straight, reach over head Side left Resistance added to HEP Equipment Used pillow under ribcage Reps/Minutes 20 x clamshell Sidelying Exercise Name reviewed HEP Reps/Minutes 10 Sitting Exercises lumbar flexion Sitting Exercise Name hip hinge- added to HEP Equipment Used painfree Reps/Minutes 10 x3 Comments pt says good back stretch, limited hip ROM noted. 1 Sitting Exercise Name sit to stand Reps/Minutes 10 Comments with TA stabilization- pain free- retro LOB but self recovery at 6th rep Standing Exercises pec stretch Standing Exercise Name added to HEP Equipment Used doorway Reps/Minutes 3 x30 sec Comments cued PPT, split stance, chin tuck, lean in various range- good response roll up wall posture Standing Exercise Name added to HEP: cued tolerant range Reps/Minutes 3 x10 sec Comments cued segmental roll up and neutral CS w/ TA LB at toward wall resisted shoulder ext Standing Exercise Name added to HEP- painfree Resistance Tb #2 Reps/Minutes 2x5 Comments cued scap depression, shld ext to side leg, chin tuck PT-OP-T Assessment and Plan Start: 05/02/21 11:54 Freq: Status: Active Protocol: Document 05/12/21 13:03 SP (Rec: 05/12/21 15:15 SP [id number]) Physical Therapy Assessment Goals Two Impairment pain Short Term Goal (STG) Migel will roll over in bed without an increase in pain. 05/12/21: goal met: has been several days since having pain . STG Duration met Suit Attendant Goal (LTG) Migel will move from sit to stand with 2/10 pain or less. 05/12/21: goal met: has been several days since having pain . LTG Duration met One Impairment ROM Short Term Goal (STG) Migel will improve his left straight leg raise to at least 45 degrees without pain to show decreased neural tension/ pain. 05/12/21: progressing L hip little 2/10 pain at 45 deg and little stronger if hold leg longer. STG Duration 4 weeks (05/12/21 progressing) Suit Attendant Goal (LTG) Migel will be independent with a HEP for core stability and flexibility. LTG Duration 6 weeks Assessment Summary Assessment Pt progresssing well with no pain past few days, compliant with flexibility/ stretching. Initiated core strengthening and postural alignment this tx . Pt reported still no pain end of tx. Pt agreed 2 more tx and will assess if needs to continue when sees his PT 05/20. Physical Therapy Plan Frequency and Duration Frequency of Treatment 2x/Week Duration of Treatment 6 weeks Plan of Care Start Date 05/02/21 Plan of Care End Date 06/13/21 Therapeutic Interventions Therapeutic Interventions Gait Training,Home Exercise Program,Joint Mobilizations, Manual Therapy,Neuromuscular Re-education,Self-Care/Home Management,Therapeutic Activities,Therapeutic Exercises Modalities Cold Pack/Ice Massage,Electric Stimulation,Hot Packs, Ultrasound Next Visit Focus/Plan Next Note Type Treatment Note Next Visit Plan Assess pt's tolerance to pec stretch/resisted shld ext and wall posture roll ups last tx. pt had not yet gotten a ball for selft STM
--- NOTE | 2021-05-17 15:25 | PT.OTN ---
Current Diagnoses Unilateral primary osteoarthritis, unspecified hip (05/17/21) Sciatica, left side (05/17/21) Physical Therapy Treatment Note PT-OP-A Visit Information Start: 05/02/21 11:54 Freq: Status: Active Protocol: Document 05/17/21 14:35 SP (Rec: 05/17/21 15:48 SP [id number]) Out-Patient Physical Therapy Visit Information Visit Information Visit Type Treatment Note Visit Note 05/17 visits Visit Start Time 14:35 Visit Stop Time 15:25 Total Visit Minutes 50 Visit Number 5 Number of COUNTER INTELLIGENCE Visits 2 PT-OP-B Current Condition Start: 05/02/21 11:54 Freq: Status: Active Protocol: Document 05/02/21 13:30 AMB (Rec: 05/02/21 15:10 AMB [email or web address]) Current Condition History of Current Condition Onset Date a couple months, insidious onset Current Complaints L sciatica with numbness/ tingling History of Current Condition Migel states twisting, rolling over to the right, and moving to sit to stand increase his pain and numbness down the back of his left leg . Coughing also makes it worse. Pain was really bad for a couple months until got pain meds from doctor and it is better now, although numbness remains. Did have a similar problem to this years ago and it got better on its own after a few months. Long history of substance/alcohol abuse but has been clean for 10 years. 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 Prior Treatments and Tests X-rays showed disc space narrowing and levoscoliosis Prior Functional Status Baseline Function- ADL's Independent Baseline Function- Mobility Independent Current Functional Impairments (Reported) Functional Limitations- ADL's Difficulty with moving from sit to stand, rolling over in bed, numbness makes walking challenging, does walk without AD Personal Factors Other Personal Factors That May Effect Hx of substance abuse, Therapy/Recovery depression, HTN, history of diaphragm surgery PT-OP-C Subjective Start: 05/02/21 11:54 Freq: Status: Active Protocol: Document 05/17/21 14:35 SP (Rec: 05/17/21 15:48 SP [id number]) OP-PT Subjective Patient Comments Patient Comments Pt reports hips still hurt little bit today. When walking , the leg muscles don't always feel like supporting. Not noticing pain or tingling much accept some twinges occasionally when walking or over range hips. Over all much better. Saw councelor yesterday and was made observation that L shld higher than R improved with awareness corrections. Pt states still doing well, no pain rolling over when sleeping. Patient Reported Progress Improving PT-OP-G Mobility & Gait Start: 05/02/21 11:54 Freq: Status: Active Protocol: Document 05/02/21 13:30 AMB (Rec: 05/02/21 15:10 AMB [email or web address]) OP Mobility Evaluation Bed Mobility Rolling Pt tends to twist spine, educated in log roll at eval Supine to and from Sit Cues not to perform sit up, pt can perform log roll at eval after cues OP Gait Assessment Comments Gait Comments Pt with antalgic gait, but not foot drop noted with gait with short distances, would need to look at gait for longer distances to completely rule out PT-OP-J Posture/Palpation/Skin Start: 05/02/21 11:54 Freq: Status: Active Protocol: Document 05/02/21 13:30 AMB (Rec: 05/02/21 15:10 AMB [email or web address]) Posture Evaluation Comments Posture Comments Scoliosis convex to L Palpation Assessment Location One Palpation Location Low back/left glutes Palpation Findings Soft Tissue Tightness,Spasm, Muscle Guarding,Tenderness Palpation Details Pain with palpation at lumbar spine and gluteals PT-OP-K Range of Motion Start: 05/02/21 11:54 Freq: Status: Active Protocol: Document 05/02/21 13:30 AMB (Rec: 05/02/21 15:10 AMB [email or web address]) Lumbar Spine Range of Motion Lumbar Spine Active Degrees Testing Position Standing Flexion 30 Extension 5 Comments pain with extension PT-OP-L Special Tests Start: 05/02/21 11:54 Freq: Status: Active Protocol: Document 05/02/21 13:30 AMB (Rec: 05/02/21 15:10 AMB [email or web address]) Special Tests Lumbar Spine Special Tests Straight Leg Raise Test Results + Comments at 30 degrees PT-OP-M Strength Start: 05/02/21 11:54 Freq: Status: Active Protocol: Document 05/02/21 13:30 AMB (Rec: 05/02/21 15:10 AMB [email or web address]) Hip Strength Hip Manual Muscle Testing Left Flexion (L2) 4+ Good+ Extension (S1) 4 Good Abduction 4 Good Knee Strength Knee Manual Muscle Testing Left Flexion (S2) 4+ Good+ Extension (L3) 4+ Good+ Ankle/Foot Strength Ankle and Foot Manual Muscle Testing Left Dorsiflexion (L4) 4+ Good+ Plantarflexion (S1) 4+ Good+ PT-OP-Q Treatments Start: 05/02/21 11:54 Freq: Status: Active Protocol: Document 05/17/21 14:35 SP (Rec: 05/17/21 15:48 SP [id number]) Therapeutic Exercises Supine Exercises hip fall out Supine Exercise Name assessed for in PT only at this time Side bilateral Resistance AROM Reps/Minutes 8 sec hold x5 Comments limited ER L- cued neutral pelvis segmental bridge Supine Exercise Name added to HEP Reps/Minutes 2x5 reps Comments mod cues for PPT then segmental roll and lift, reverse descend leg lengthener Supine Exercise Name LEs //- reviewed HEP no pain or tingling Side bilateral Resistance AROM- L more than R Reps/Minutes x5- very little tingling in bottom L foot alot better Comments cued netural pelvic, push heel away from hip but supported on table pirformis stretch Supine Exercise Name foot over opposite knee relax, then hip IR stretch Side left Resistance reviewed Reps/Minutes 30 x2 Comments cued use UE for support and active hamstring Supine Exercise Name HEP review Side left Equipment Used strap today vs towel behind thigh Reps/Minutes 5 PF/DF AP x3 sets Comments cued set up and proper form, tolerated in supine TA stabilization Supine Exercise Name TA and pelvic tilts Reps/Minutes 10 hold x10 Comments PPT>neutral pelvis w/ TA awareness, in hooklying, cues for breathing Prone Exercises knee flexion w/ hip IR&ER Prone Exercise Name inhibit hip flexion (assessed ROM in PT only) Side bilateral Resistance AROM Equipment Used pillow under pelvis Reps/Minutes x8 Comments limited hip ER L LE Sitting Exercises hip ER stretch Side bilateral Reps/Minutes 30 x2 lumbar flexion Sitting Exercise Name hip hinge- added to HEP Equipment Used painfree range Reps/Minutes 10 x3 Comments pt says good back stretch, limited hip ROM noted. 1 Sitting Exercise Name sit to stand Reps/Minutes 10 Comments with TA stabilization- pain free Standing Exercises TA press outs Standing Exercise Name added to HEP- painfree- good core fac feeling Side bilateral Resistance TB #2 ( band doubled) anchored door home Reps/Minutes x5 reps Comments cued tall posture, neutral pelvis- good self corrections resisted row Standing Exercise Name added to HEP- pain free Resistance TB #2 Reps/Minutes x10 Comments cued PPT, tall posture, TA fac - pain free, weakness eccentric direction pec stretch Standing Exercise Name review HEP next tx Equipment Used doorway Reps/Minutes 3 x30 sec Comments cued PPT, split stance, chin tuck, lean in various range- good response resisted shoulder ext Standing Exercise Name reviewdd HEP- painfree Resistance Tb #2 Reps/Minutes 2x5 Comments cued scap depression, shld ext to side leg, chin tuck Manual Therapy Treatment Manual Traction long axis Details L LE Comments good tightness in L hip/ LB response PT-OP-T Assessment and Plan Start: 05/02/21 11:54 Freq: Status: Active Protocol: Document 05/17/21 14:35 SP (Rec: 05/17/21 15:48 SP [id number]) Physical Therapy Assessment Goals Two Impairment pain Short Term Goal (STG) Migel will roll over in bed without an increase in pain. 05/12/21: goal met: has been several days since having pain . STG Duration met Collar Pointer Goal (LTG) Migel will move from sit to stand with 2/10 pain or less. 05/12/21: goal met: has been several days since having pain . LTG Duration met One Impairment ROM Short Term Goal (STG) Migel will improve his left straight leg raise to at least 45 degrees without pain to show decreased neural tension/ pain. 05/12/21: progressing L hip little 2/10 pain at 45 deg and little stronger if hold leg longer. STG Duration 4 weeks (05/12/21 progressing) Snf Goal (LTG) Migel will be independent with a HEP for core stability and flexibility. LTG Duration 6 weeks Progress Towards Goals Progress Towards Goals Progressing Toward Goals Progress Comments Pt making progress in painfree ther ex and improved mobility , no pain rolling over in sleep. Assessment Summary Assessment Pt progressing well with mostly painfree days, has occasional twinge and tingling down L leg during hip ER movements, still has times when WB walking feels like might not hold. Responded well with initiated core resisted rows, ext, press outs with no adverse reactions, cues for postural alignment, neutral pelvis. Ended with flexibility / ROM ( supine/ prone) and core segmental bridge facilitation. Physical Therapy Plan Frequency and Duration Frequency of Treatment 2x/Week Duration of Treatment 6 weeks Plan of Care Start Date 05/02/21 Plan of Care End Date 06/13/21 Therapeutic Interventions Therapeutic Interventions Gait Training,Home Exercise Program,Joint Mobilizations, Manual Therapy,Neuromuscular Re-education,Self-Care/Home Management,Therapeutic Activities,Therapeutic Exercises Modalities Cold Pack/Ice Massage,Electric Stimulation,Hot Packs, Ultrasound Next Visit Focus/Plan Next Note Type Treatment Note Next Visit Plan Review standing HEP: rows, ext , press outs, pec stretch, segmental bridge and flexibility. pt stil has not yet gotten a ball for self STMs.
--- NOTE | 2021-05-20 13:58 | PT.OTN ---
Current Diagnoses Unilateral primary osteoarthritis, unspecified hip (05/20/21) Sciatica, left side (05/20/21) Physical Therapy Treatment Note PT-OP-A Visit Information Start: 05/02/21 11:54 Freq: Status: Active Protocol: Document 05/20/21 11:00 AMB (Rec: 05/20/21 11:48 AMB [id number]) Out-Patient Physical Therapy Visit Information Visit Information Visit Type Treatment Note Visit Start Time 11:00 Visit Stop Time 11:45 Total Visit Minutes 45 Visit Number 6 Number of COIL CLEANER Visits 0 PT-OP-B Current Condition Start: 05/02/21 11:54 Freq: Status: Active Protocol: Document 05/02/21 13:30 AMB (Rec: 05/02/21 15:10 AMB [email or web address]) Current Condition History of Current Condition Onset Date a couple months, insidious onset Current Complaints L sciatica with numbness/ tingling History of Current Condition Migel states twisting, rolling over to the right, and moving to sit to stand increase his pain and numbness down the back of his left leg . Coughing also makes it worse. Pain was really bad for a couple months until got pain meds from doctor and it is better now, although numbness remains. Did have a similar problem to this years ago and it got better on its own after a few months. Long history of substance/alcohol abuse but has been clean for 10 years. Lives with his elderly mom, on SS disability, previously in [employer] with lots of physical labor. Prior Treatments and Tests X-rays showed disc space narrowing and levoscoliosis Prior Functional Status Baseline Function- ADL's Independent Baseline Function- Mobility Independent Current Functional Impairments (Reported) Functional Limitations- ADL's Difficulty with moving from sit to stand, rolling over in bed, numbness makes walking challenging, does walk without AD Personal Factors Other Personal Factors That May Effect Hx of substance abuse, Therapy/Recovery depression, HTN, history of diaphragm surgery PT-OP-C Subjective Start: 05/02/21 11:54 Freq: Status: Active Protocol: Document 05/20/21 11:00 AMB (Rec: 05/20/21 13:58 AMB [email or web address]) OP-PT Subjective Patient Comments Patient Comments Pt feels like numbness is going a lot better. Stretching the leg can bring on a little bit of discomort but overall feels better. Having difficulty getting active/geting out of the house due to depression/ playing video games. PT-OP-G Mobility & Gait Start: 05/02/21 11:54 Freq: Status: Active Protocol: Document 05/02/21 13:30 AMB (Rec: 05/02/21 15:10 AMB [email or web address]) OP Mobility Evaluation Bed Mobility Rolling Pt tends to twist spine, educated in log roll at eval Supine to and from Sit Cues not to perform sit up, pt can perform log roll at eval after cues OP Gait Assessment Comments Gait Comments Pt with antalgic gait, but not foot drop noted with gait with short distances, would need to look at gait for longer distances to completely rule out PT-OP-J Posture/Palpation/Skin Start: 05/02/21 11:54 Freq: Status: Active Protocol: Document 05/02/21 13:30 AMB (Rec: 05/02/21 15:10 AMB [email or web address]) Posture Evaluation Comments Posture Comments Scoliosis convex to L Palpation Assessment Location One Palpation Location Low back/left glutes Palpation Findings Soft Tissue Tightness,Spasm, Muscle Guarding,Tenderness Palpation Details Pain with palpation at lumbar spine and gluteals PT-OP-K Range of Motion Start: 05/02/21 11:54 Freq: Status: Active Protocol: Document 05/02/21 13:30 AMB (Rec: 05/02/21 15:10 AMB [email or web address]) Lumbar Spine Range of Motion Lumbar Spine Active Degrees Testing Position Standing Flexion 30 Extension 5 Comments pain with extension PT-OP-L Special Tests Start: 05/02/21 11:54 Freq: Status: Active Protocol: Document 05/02/21 13:30 AMB (Rec: 05/02/21 15:10 AMB [email or web address]) Special Tests Lumbar Spine Special Tests Straight Leg Raise Test Results + Comments at 30 degrees PT-OP-M Strength Start: 05/02/21 11:54 Freq: Status: Active Protocol: Document 05/02/21 13:30 AMB (Rec: 05/02/21 15:10 AMB [email or web address]) Hip Strength Hip Manual Muscle Testing Left Flexion (L2) 4+ Good+ Extension (S1) 4 Good Abduction 4 Good Knee Strength Knee Manual Muscle Testing Left Flexion (S2) 4+ Good+ Extension (L3) 4+ Good+ Ankle/Foot Strength Ankle and Foot Manual Muscle Testing Left Dorsiflexion (L4) 4+ Good+ Plantarflexion (S1) 4+ Good+ PT-OP-Q Treatments Start: 05/02/21 11:54 Freq: Status: Active Protocol: Document 05/20/21 11:00 AMB (Rec: 05/20/21 13:58 AMB [email or web address]) Therapeutic Exercises Supine Exercises segmental bridge Supine Exercise Name added to HEP Reps/Minutes 2x5 reps Comments mod cues for PPT then segmental roll and lift, reverse descend active hamstring Supine Exercise Name HEP review Side left Equipment Used strap today vs towel behind thigh Reps/Minutes 5 PF/DF AP x3 sets Comments cued set up and proper form, tolerated in supine Standing Exercises resisted row Standing Exercise Name added to HEP- pain free Resistance TB #2 Reps/Minutes x10 Comments cued PPT, tall posture, TA fac - pain free, weakness eccentric direction Other Exercises 1 Other Exercise Name walking progression education Comments ambulated 200', became SOB no increase pain PT-OP-T Assessment and Plan Start: 05/02/21 11:54 Freq: Status: Active Protocol: Document 05/20/21 11:00 AMB (Rec: 05/20/21 11:48 AMB [id number]) Physical Therapy Assessment Goals Two Impairment pain Short Term Goal (STG) Migel will roll over in bed without an increase in pain. 05/12/21: goal met: has been several days since having pain . STG Duration met Halfway Goal (LTG) Migel will move from sit to stand with 2/10 pain or less. 05/12/21: goal met: has been several days since having pain . LTG Duration met One Impairment ROM Short Term Goal (STG) Migel will improve his left straight leg raise to at least 45 degrees without pain to show decreased neural tension/ pain. 05/12/21: progressing L hip little 2/10 pain at 45 deg and little stronger if hold leg longer. STG Duration 4 weeks (05/12/21 progressing) Vibration Analyst Goal (LTG) Migel will be independent with a HEP for core stability and flexibility. LTG Duration 6 weeks Assessment Summary Assessment Migel's numbness is signficantly improved, but he is worried about how he is going to return to activity without flaring his symptoms. Given instruction in walking program and asked to walk 2-3x in next week to assess how leg tolerates it. Physical Therapy Plan Next Visit Focus/Plan Next Note Type Treatment Note Next Visit Plan Review standing HEP: rows, ext , press outs, pec stretch, segmental bridge and flexibility. pt stil has not yet gotten a ball for self STMs.
--- NOTE | 2021-05-25 15:42 | PT.OTN ---
Current Diagnoses Unilateral primary osteoarthritis, unspecified hip (05/25/21) Sciatica, left side (05/25/21) Physical Therapy Treatment Note PT-OP-A Visit Information Start: 05/02/21 11:54 Freq: Status: Active Protocol: Document 05/25/21 11:00 AMB (Rec: 05/25/21 15:40 AMB [email or web address]) Out-Patient Physical Therapy Visit Information Visit Information Visit Type Treatment Note Visit Start Time 11:00 Visit Stop Time 11:45 Total Visit Minutes 45 Visit Number 7 PT-OP-B Current Condition Start: 05/02/21 11:54 Freq: Status: Active Protocol: Document 05/02/21 13:30 AMB (Rec: 05/02/21 15:10 AMB [email or web address]) Current Condition History of Current Condition Onset Date a couple months, insidious onset Current Complaints L sciatica with numbness/ tingling History of Current Condition Migel states twisting, rolling over to the right, and moving to sit to stand increase his pain and numbness down the back of his left leg . Coughing also makes it worse. Pain was really bad for a couple months until got pain meds from doctor and it is better now, although numbness remains. Did have a similar problem to this years ago and it got better on its own after a few months. Long history of substance/alcohol abuse but has been clean for 10 years. Lives with his elderly mom, on SS disability, previously in landscaping with lots of physical labor. Prior Treatments and Tests X-rays showed disc space narrowing and levoscoliosis Prior Functional Status Baseline Function- ADL's Independent Baseline Function- Mobility Independent Current Functional Impairments (Reported) Functional Limitations- ADL's Difficulty with moving from sit to stand, rolling over in bed, numbness makes walking challenging, does walk without AD Personal Factors Other Personal Factors That May Effect Hx of substance abuse, Therapy/Recovery depression, HTN, history of diaphragm surgery PT-OP-C Subjective Start: 05/02/21 11:54 Freq: Status: Active Protocol: Document 05/25/21 11:00 AMB (Rec: 05/25/21 15:40 AMB [email or web address]) OP-PT Subjective Patient Comments Patient Comments Pt was feeling better and mowed his lawn. [place] ok while he was doing it and then pain came back the next day. PT-OP-G Mobility & Gait Start: 05/02/21 11:54 Freq: Status: Active Protocol: Document 05/02/21 13:30 AMB (Rec: 05/02/21 15:10 AMB [email or web address]) OP Mobility Evaluation Bed Mobility Rolling Pt tends to twist spine, educated in log roll at eval Supine to and from Sit Cues not to perform sit up, pt can perform log roll at eval after cues OP Gait Assessment Comments Gait Comments Pt with antalgic gait, but not foot drop noted with gait with short distances, would need to look at gait for longer distances to completely rule out PT-OP-J Posture/Palpation/Skin Start: 05/02/21 11:54 Freq: Status: Active Protocol: Document 05/02/21 13:30 AMB (Rec: 05/02/21 15:10 AMB [email or web address]) Posture Evaluation Comments Posture Comments Scoliosis convex to L Palpation Assessment Location One Palpation Location Low back/left glutes Palpation Findings Soft Tissue Tightness,Spasm, Muscle Guarding,Tenderness Palpation Details Pain with palpation at lumbar spine and gluteals PT-OP-K Range of Motion Start: 05/02/21 11:54 Freq: Status: Active Protocol: Document 05/02/21 13:30 AMB (Rec: 05/02/21 15:10 AMB [email or web address]) Lumbar Spine Range of Motion Lumbar Spine Active Degrees Testing Position Standing Flexion 30 Extension 5 Comments pain with extension PT-OP-L Special Tests Start: 05/02/21 11:54 Freq: Status: Active Protocol: Document 05/02/21 13:30 AMB (Rec: 05/02/21 15:10 AMB [email or web address]) Special Tests Lumbar Spine Special Tests Straight Leg Raise Test Results + Comments at 30 degrees PT-OP-M Strength Start: 05/02/21 11:54 Freq: Status: Active Protocol: Document 05/02/21 13:30 AMB (Rec: 05/02/21 15:10 AMB [email or web address]) Hip Strength Hip Manual Muscle Testing Left Flexion (L2) 4+ Good+ Extension (S1) 4 Good Abduction 4 Good Knee Strength Knee Manual Muscle Testing Left Flexion (S2) 4+ Good+ Extension (L3) 4+ Good+ Ankle/Foot Strength Ankle and Foot Manual Muscle Testing Left Dorsiflexion (L4) 4+ Good+ Plantarflexion (S1) 4+ Good+ PT-OP-Q Treatments Start: 05/02/21 11:54 Freq: Status: Active Protocol: Document 05/25/21 11:00 AMB (Rec: 05/25/21 15:40 AMB [email or web address]) Therapeutic Exercises Supine Exercises active hamstring Supine Exercise Name HEP review Side left Equipment Used strap today vs towel behind thigh Reps/Minutes 5 PF/DF AP x3 sets Comments cued set up and proper form, tolerated in supine Manual Therapy Treatment Soft Tissue Mobilization L LE STMs Body Location at hip Mobilization Type Sustained Pressure Manual Traction long axis Details L LE Comments good tightness in L hip/ LB response PT-OP-R Modalities Start: 05/02/21 11:54 Freq: Status: Active Protocol: Document 05/25/21 11:00 AMB (Rec: 05/25/21 15:42 AMB [email or web address]) Hot Pack/Cold Pack Treatment Cold Pack Location low back and left hip Patient Position Hooklying Treatment Duration (minutes) 10 PT-OP-T Assessment and Plan Start: 05/02/21 11:54 Freq: Status: Active Protocol: Document 05/25/21 11:00 AMB (Rec: 05/25/21 15:40 AMB [email or web address]) Physical Therapy Assessment Assessment Summary Assessment Migel was more sensitive today with nerve irritation at hip abduction and flexion. Benefited from manual traction , encouraged in icing at home. Physical Therapy Plan Next Visit Focus/Plan Next Note Type Treatment Note Next Visit Plan Follow up on flare up of sx Review standing HEP: rows, ext , press outs, pec stretch, segmental bridge and flexibility. pt stil has not yet gotten a ball for self STMs.
--- NOTE | 2021-06-09 15:29 | PT.OTN ---
Current Diagnoses Unilateral primary osteoarthritis, unspecified hip (06/09/21) Sciatica, left side (06/09/21) Physical Therapy Treatment Note PT-OP-A Visit Information Start: 05/02/21 11:54 Freq: Status: Active Protocol: Document 06/09/21 14:00 AMB (Rec: 06/09/21 14:26 AMB [id number]) Out-Patient Physical Therapy Visit Information Visit Information Visit Type Treatment Note Visit Start Time 14:00 Visit Stop Time 14:45 Total Visit Minutes 45 Visit Number 8 PT-OP-B Current Condition Start: 05/02/21 11:54 Freq: Status: Active Protocol: Document 05/02/21 13:30 AMB (Rec: 05/02/21 15:10 AMB [email or web address]) Current Condition History of Current Condition Onset Date a couple months, insidious onset Current Complaints L sciatica with numbness/ tingling History of Current Condition Migel states twisting, rolling over to the right, and moving to sit to stand increase his pain and numbness down the back of his left leg . Coughing also makes it worse. Pain was really bad for a couple months until got pain meds from doctor and it is better now, although numbness remains. Did have a similar problem to this years ago and it got better on its own after a few months. Long history of substance/alcohol abuse but has been clean for 10 years. 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 Prior Treatments and Tests X-rays showed disc space narrowing and levoscoliosis Prior Functional Status Baseline Function- ADL's Independent Baseline Function- Mobility Independent Current Functional Impairments (Reported) Functional Limitations- ADL's Difficulty with moving from sit to stand, rolling over in bed, numbness makes walking challenging, does walk without AD Personal Factors Other Personal Factors That May Effect Hx of substance abuse, Therapy/Recovery depression, HTN, history of diaphragm surgery PT-OP-C Subjective Start: 05/02/21 11:54 Freq: Status: Active Protocol: Document 06/09/21 14:00 AMB (Rec: 06/09/21 14:26 AMB [id number]) OP-PT Subjective Patient Comments Patient Comments 165/113 bpm 109. Spo2 95. PT-OP-G Mobility & Gait Start: 05/02/21 11:54 Freq: Status: Active Protocol: Document 05/02/21 13:30 AMB (Rec: 05/02/21 15:10 AMB [email or web address]) OP Mobility Evaluation Bed Mobility Rolling Pt tends to twist spine, educated in log roll at eval Supine to and from Sit Cues not to perform sit up, pt can perform log roll at eval after cues OP Gait Assessment Comments Gait Comments Pt with antalgic gait, but not foot drop noted with gait with short distances, would need to look at gait for longer distances to completely rule out PT-OP-J Posture/Palpation/Skin Start: 05/02/21 11:54 Freq: Status: Active Protocol: Document 05/02/21 13:30 AMB (Rec: 05/02/21 15:10 AMB [email or web address]) Posture Evaluation Comments Posture Comments Scoliosis convex to L Palpation Assessment Location One Palpation Location Low back/left glutes Palpation Findings Soft Tissue Tightness,Spasm, Muscle Guarding,Tenderness Palpation Details Pain with palpation at lumbar spine and gluteals PT-OP-K Range of Motion Start: 05/02/21 11:54 Freq: Status: Active Protocol: Document 05/02/21 13:30 AMB (Rec: 05/02/21 15:10 AMB [email or web address]) Lumbar Spine Range of Motion Lumbar Spine Active Degrees Testing Position Standing Flexion 30 Extension 5 Comments pain with extension PT-OP-L Special Tests Start: 05/02/21 11:54 Freq: Status: Active Protocol: Document 05/02/21 13:30 AMB (Rec: 05/02/21 15:10 AMB [email or web address]) Special Tests Lumbar Spine Special Tests Straight Leg Raise Test Results + Comments at 30 degrees PT-OP-M Strength Start: 05/02/21 11:54 Freq: Status: Active Protocol: Document 05/02/21 13:30 AMB (Rec: 05/02/21 15:10 AMB [email or web address]) Hip Strength Hip Manual Muscle Testing Left Flexion (L2) 4+ Good+ Extension (S1) 4 Good Abduction 4 Good Knee Strength Knee Manual Muscle Testing Left Flexion (S2) 4+ Good+ Extension (L3) 4+ Good+ Ankle/Foot Strength Ankle and Foot Manual Muscle Testing Left Dorsiflexion (L4) 4+ Good+ Plantarflexion (S1) 4+ Good+ PT-OP-Q Treatments Start: 05/02/21 11:54 Freq: Status: Active Protocol: Document 06/09/21 14:00 AMB (Rec: 06/09/21 15:23 AMB [email or web address]) Therapeutic Exercises Supine Exercises pirformis stretch Supine Exercise Name foot over opposite knee relax, then hip IR stretch Side left Resistance reviewed Reps/Minutes 30 x2 Comments cued use UE for support and active hamstring Supine Exercise Name HEP review Side left Equipment Used strap today vs towel behind thigh Reps/Minutes 5 PF/DF AP x3 sets Comments cued set up and proper form, tolerated in supine TA stabilization Supine Exercise Name TA and pelvic tilts Reps/Minutes 10 hold x10 Comments PPT>neutral pelvis w/ TA awareness, in hooklying, cues for breathing Manual Therapy Treatment Soft Tissue Mobilization L LE STMs Body Location at hip Mobilization Type Sustained Pressure Manual Traction long axis Details L LE Comments good tightness in L hip/ LB response PT-OP-R Modalities Start: 05/02/21 11:54 Freq: Status: Active Protocol: Document 05/25/21 11:00 AMB (Rec: 05/25/21 15:42 AMB [email or web address]) Hot Pack/Cold Pack Treatment Cold Pack Location low back and left hip Patient Position Hooklying Treatment Duration (minutes) 10 PT-OP-T Assessment and Plan Start: 05/02/21 11:54 Freq: Status: Active Protocol: Document 06/09/21 14:00 AMB (Rec: 06/09/21 14:26 AMB [id number]) Physical Therapy Assessment Goals Two Impairment pain Short Term Goal (STG) Migel will roll over in bed without an increase in pain. 05/12/21: goal met: has been several days since having pain . STG Duration met [employer] Programmer Goal (LTG) Migel will move from sit to stand with 2/10 pain or less. LTG Duration met One Impairment ROM Short Term Goal (STG) Migel will improve his left straight leg raise to at least 45 degrees without pain to show decreased neural tension/ pain. STG Duration MET [employer] Programmer Goal (LTG) Migel will be independent with a HEP for core stability and flexibility. LTG Duration MET Assessment Summary Assessment Migel's blood pressure was quite elevated today and he really wasn't feeling good. He was encouraged to go to his pharmacy and talk with his doctor about getting back on his blood pressure meds. His numbness/pain is better, although he hasn't mowed the lawn again since last time when it flared his pain up. He feels ready to be discharged since his pain/ numbness is better and he has all of his exercise handouts. Physical Therapy Plan Discharge Physical Therapy Discharge Reasons Goals Met
== END 2021-06-10 07:51 | disposition home or self-care (01) ==
LOC: PHYS 14:00
PROVIDERS: Family Provider Nurse Practitioner Family; PCP Nurse Practitioner Family; Referring Provider Nurse Practitioner Family; Visit Provider Nurse Practitioner Family
DX: M54.32 Sciatica, left side (principal); M16.10 Unilateral primary osteoarthritis, unspecified hip
CPT/HCPCS: 97110; 97140; 97162

== ENCOUNTER → 2021-06-29 15:30 | Outpatient (CLI) | payer OTHER, MEDICAID, SELFPAY ==
[2018-04-09 16:08] VITALS: BMI 35.7
[2021-06-29 16:39] LABS: Hematocrit 47.9 % (41-53); Hemoglobin 15.8 g/dL (13.5-17.5); Mean Corpuscular Hemoglobin 29.2 PG (26-34); Mean Corpuscular Volume 88.4 fL (80-100); Platelet Count 182 X10^3/uL (150-400); Red Blood Cell Count 5.41 X10^6/uL (4.5-5.9); White Blood Cell Count 7.1 X10^3/uL (4.5-11.0)
[2021-06-29 16:58] LABS: Alanine Aminotransferase 26 IU/L (<50); Albumin 4.5 g/dL (3.5-5.0); Albumin Globulin Ratio 1.6 (1.0-2.8); Alkaline Phosphatase 73 U/L (38-126); Aspartate Aminotransferase 28 IU/L (17-59); BUN Creatinine Ratio 19.4 (6-22); Bilirubin Total 0.4 mg/dL (0.2-1.3); Blood Urea Nitrogen 20 mg/dL (9-20); Calcium 9.2 mg/dL (8.4-10.2); Carbon Dioxide 30 mmol/L (22-32); Chloride 105 mmol/L (98-107); Estimated Glomerular Filt Rate > 60.0 mL/min (>60); Globulin 2.8 g/dL (1.7-4.1); Glucose 98 mg/dL (80-110); HEMOLYSIS 25 (0-50); Potassium 4.2 mmol/L (3.4-5.1); Sodium 142 mmol/L (137-145); Total Protein 7.3 g/dL (6.3-8.2)
== END ==
PROVIDERS: Family Provider Nurse Practitioner Family; PCP Nurse Practitioner Family; Referring Provider Nurse Practitioner Family; Visit Provider Nurse Practitioner Family
DX: Z00.00 Encounter for general adult medical examination without abnormal findings (principal); J44.9 Chronic obstructive pulmonary disease, unspecified
CPT/HCPCS: 36415; 80053; 85027

== ENCOUNTER → 2022-05-01 06:53 | Outpatient (CLI) | payer OTHER, MEDICAID, SELFPAY ==
[2018-04-09 16:08] VITALS: BMI 35.7
--- NOTE | 2022-05-01 06:55 | DI.RAD.S_ITS ---
PROCEDURE: XR HIP W PEL IF DONE LT 2V INDICATIONS: eval worsening L hip pain TECHNIQUE: AP pelvis with lateral view(s) of the left hip(s). COMPARISON: None. FINDINGS: Bones: No acute fracture or dislocation. No suspicious bony lesions. There is moderate to severe left hip joint space narrowing and large collar osteophytes. There is mild right hip joint space narrowing. Soft tissues: The visualized bowel gas pattern is normal. No suspicious soft tissue calcifications. IMPRESSION: Moderate to severe left hip osteoarthritis. Dictated by: Michelle Pimentel M.D. on 05/01/2022 at 9:46 Approved by: Michelle Pimentel M.D. on 05/01/2022 at 9:46
[2022-05-01 08:48] LABS: Hemoglobin 15.7 g/dL (13.5-17.5); Mean Corpuscular HGB Conc 34.1 % (30-36); Mean Corpuscular Hemoglobin 29.4 PG (26-34); Mean Corpuscular Volume 86.3 fL (80-100); Platelet Count 183 X10^3/uL (150-400); Red Blood Cell Count 5.33 X10^6/uL (4.5-5.9); Red Cell Distribution Width 14.8 % (11.6-14.8); White Blood Cell Count 5.6 X10^3/uL (4.5-11.0)
[2022-05-01 09:13] LABS: Alanine Aminotransferase 23 IU/L (<50); Albumin 4.4 g/dL (3.5-5.0); Albumin Globulin Ratio 1.5 (1.0-2.8); Alkaline Phosphatase 63 U/L (38-126); Aspartate Aminotransferase 25 IU/L (17-59); BUN Creatinine Ratio 19.8 (6-22); Bilirubin Total 0.5 mg/dL (0.2-1.3); Blood Urea Nitrogen 21 mg/dL (9-20); Calcium 8.7 mg/dL (8.4-10.2); Carbon Dioxide 25 mmol/L (22-32); Chloride 104 mmol/L (98-107); Cholesterol 210 mg/dL (140-199); Estimated Glomerular Filt Rate > 60 mL/min (>60); Globulin 2.9 g/dL (1.7-4.1); Glucose 99 mg/dL (80-110); HDL Cholesterol 49 mg/dL (40-60); HEMOLYSIS 30 (0-50); LDL Cholesterol Calculated 134 mg/dL (<100); Potassium 3.9 mmol/L (3.4-5.1); Sodium 139 mmol/L (137-145); Total Protein 7.3 g/dL (6.3-8.2); Triglycerides 134 mg/dL (35-150)
[2022-05-01 10:14] LABS: TSH w/ Reflex to FT4 2.07 uIU/mL (0.47-4.68)
== END ==
PROVIDERS: Family Provider Nurse Practitioner Family; PCP Registered Nurse Diabetes Educator; Referring Provider Registered Nurse Diabetes Educator; Visit Provider Registered Nurse Diabetes Educator
DX: M25.552 Pain in left hip (principal); E78.2 Mixed hyperlipidemia; R03.0 Elevated blood-pressure reading, without diagnosis of hypertension; M16.12 Unilateral primary osteoarthritis, left hip
CPT/HCPCS: 36415; 73502; 80053; 80061; 84443; 85027

== ENCOUNTER 2022-10-22 20:31 | Inpatient (IN) | payer OTHER, MEDICAID, SELFPAY ==
[2018-04-09 16:08] VITALS: BMI 35.7
[2022-10-22] VITALS (10 sets, daily range): BP systolic 135–146; BP diastolic 81–88; PULSE 91–95; RESP 20; TEMP 37.4; O2SAT 81–97; BMI 36.5
--- NOTE | 2022-10-22 20:35 | DI.RAD.S_ITS ---
PROCEDURE: XR ACUTE ABDOMEN SERIES INDICATIONS: Abdominal pain TECHNIQUE: One view chest and two views of the abdomen were acquired. COMPARISON: [facility], CT, CT ABDOMEN PELVIS W CON, 10/22/2022, 21:33. FINDINGS: Surgical changes and devices: None. Chest: There are medial right basilar opacities consistent with atelectasis or consolidation. No pleural effusions. Abdomen: There is a small amount of right subdiaphragmatic free air consistent with pneumoperitoneum. Bowel gas pattern is normal. No suspicious calcifications. Bones: No suspicious bony lesions. IMPRESSION: 1. Pneumoperitoneum within the abdomen. Recommend correlation with subsequent CT. 2. Right basilar medial opacities consistent with atelectasis or consolidation. Dictated by: Wily Graham M.D. on 10/22/2022 at 21:45 Approved by: Wily Graham M.D. on 10/22/2022 at 21:49
--- NOTE | 2022-10-22 20:36 | ED_ITS ---
HPI - Abdominal Pain General Chief Complaint: Abdominal Pain Stated Complaint: Abd Pain Time Seen by Provider: 10/22/22 20:34 History of Present Illness HPI narrative: 62-year-old male former smoker, former alcoholic (dry for 11 years) presents with EMS in the chief complaint of severe abdominal pain worse in the right lower quadrant, gradually worsening over the course of the day. He states he is had a poor appetite for the past few days and has had decreased if any bowel movements over that time frame. He does not know if he has been passing gas and denies any trouble urinating. He states his pain severe and in the right lower quadrant, significantly worse when he moves and improves with rest. He complains of his abdomen being swollen. He is nauseated but denies any vomi ting. He is had no fever or chills. He last ate about 1 hour prior to his arrival. He does state he is has had kidney stones in the past but this feels significantly different. EMS had given fentanyl 100 mcg EN route with some improvement Related Data Home Medications Medication Instructions Recorded Confirmed modafinil 200 mg tablet 400 mg PO DAILY 03/14/22 10/22/22 brexpiprazole 4 mg tablet (Rexulti) 4 mg PO DAILY 05/02/22 10/22/22 vilazodone 10 mg tablet 10 mg PO DAILY 10/22/22 10/22/22 Previous Rx's Medication Instructions Recorded atorvastatin 20 mg tablet 20 mg PO BEDTIME #90 tabs 05/02/22 meloxicam 7.5 mg tablet 7.5 mg PO DAILY #30 tabs 08/15/22 Allergies Allergy/AdvReac Type Severity Reaction Status Date / Time Penicillins Allergy Intermediate Hives Verified 10/22/22 21:10 Review of Systems Review of Systems Narrative: GENERAL: Denies chills, fatigue, malaise, fever, sweats. HEENT: Denies sinus pain, ear pain, sore throat, difficulty swallowing, dizziness. RESPIRATORY: Denies dyspnea, cough, wheezing, hemoptysis, sputum. CARDIOVASCULAR: Denies chest pain, palpitations, orthopnea, edema, GASTROINTESTINAL: See HPI : Denies dysuria, frequency, incontinence, hematuria, urinary retention. MUSCULOSKELETAL: denies weakness, joint pain, or bony pain SKIN: Denies rash, skin lesions, or other NEUROLOGIC: Denies weakness, headache, numbness, change in speech, confusion, seizures, incoordination. PSYCHIATRIC: No concerning psychosocial issues. 12 point review of systems is negative except for those stated above Patient History Medical History Abnormal chest x-ray (~2017) Anxiety Benign familial tremor (~2014) Bipolar disease, chronic Chicken pox (~1969) COPD (chronic obstructive pulmonary disease) (~2017) Depression Essential tremor Fractures History of recurrent ear infection (~1964) Kidney stones (~1994) Low testosterone in male Measles (~1966) Mixed hyperlipidemia Mumps (~1965) Sciatica of left side Seasonal allergies Sleep apnea (~2014) Stasis dermatitis Substance abuse Surgical History Anesthesia History of surgery (~2009) Mass (~2015) Family History Father Diabetes mellitus History of heart disease Hyperlipidemia Hypertension Mother Cancer Sister Sjogren's syndrome Social History household members: family Smoking Status: Former smoker Tobacco: How many years used: 40 second hand exposure: No alcohol intake: former substance use type: marijuana (Smoke every so often) Smoking Status: Former smoker (Quit 7-8 Years ago) Exam Narrative Exam Narrative: GENERAL: [62] year old patient appears stated age. Well-developed patient, in obvious distress. HEAD: Atraumatic. Normocephalic. EYES: Pupils equal round and reactive. Extraocular motions intact. No scleral icterus. No injection or drainage. ENT: Nose without bleeding, purulent drainage. Throat without erythema, tonsillar hypertrophy or exudate. Airway patent. NECK: Trachea midline. Non tender CARDIOVASCULAR: Regular rate and rhythm without murmurs, gallops, or rubs. RESPIRATORY: Clear to auscultation. Breath sounds equal bilaterally. No wheezes, rales, or rhonchi. GASTROINTESTINAL: Abdomen distended and significantly tender with localized guarding in the right lower quadrant, voluntary guarding, perhaps minimal rebound, positive obturator, psoas and heel tap EXTREMITIES: No edema or joint tenderness. BACK: Nontender without deformity or crepitance. No flank tenderness. NEURO: AOx3. SKIN: No rash or erythema of visible areas Initial Vital Signs Initial Vital Signs: Vital Signs Temperature 99.3 F 10/22/22 20:36 Pulse Rate 92 H 10/22/22 20:36 Respiratory Rate 20 10/22/22 20:36 Blood Pressure 136/81 10/22/22 20:36 Pulse Oximetry 94 10/22/22 20:36 Oxygen Delivery Method 10/22/22 20:36 Course Orders Ordered: Acetaminophen (Acetaminophen 325 Mg Tablet) 650 mg PO Q6H PRN PRN Reason: Fever/Mild Pain (1-3) Last Admin: 10/23/22 15:21 Dose: 650 mg Documented By: WAN Atorvastatin Calcium (Atorvastatin 20 Mg Tablet) 20 mg PO BEDTIME [facility] Last Admin: 10/23/22 20:25 Dose: 20 mg Documented By: Bupropion HCl (Bupropion Sr 100 Mg Tab) 200 mg PO BID [facility] Last Admin: 10/23/22 20:26 Dose: Not Given Documented By: Admin: 10/23/22 08:08 Dose: Not Given Documented By: WAN Calcium Carbonate (Calcium Carbonate 500 Mg Tab) 1,000 mg PO Q4HR PRN PRN Reason: Dyspepsia Enoxaparin Sodium (Enoxaparin 40 Mg/0.4 Ml Syringe) 40 mg SUBCUT DAILY [facility] Last Admin: 10/23/22 11:19 Dose: 40 mg Documented By: WAN Hydromorphone HCl (Hydromorphone 0.5 Mg Inj) 0.5 mg IV Q1H PRN PRN Reason: Pain, Moderate (4-6) Last Admin: 10/23/22 22:17 Dose: 0.5 mg Documented By: Admin: 10/23/22 15:21 Dose: 0.5 mg Documented By: Admin: 10/23/22 07:51 Dose: 0.5 mg Documented By: Admin: 10/23/22 05:19 Dose: 0.5 mg Documented By: Admin: 10/23/22 03:32 Dose: 0.5 mg Documented By: Admin: 10/22/22 23:58 Dose: 0.5 mg Documented By: CALLIE Lactated Ringer's (Lactated Ringers) 1,000 mls @ 150 mls/hr IV CONT [facility] Last Admin: 10/24/22 00:44 Dose: 150 mls/hr Documented By: Infusion: 10/23/22 20:38 Dose: 150 mls/hr Documented By: Admin: 10/23/22 13:57 Dose: 150 mls/hr Documented By: Infusion: 10/23/22 13:57 Dose: 150 mls/hr Documented By: Admin: 10/23/22 07:52 Dose: 150 mls/hr Documented By: Infusion: 10/23/22 06:38 Dose: 150 mls/hr Documented By: Admin: 10/22/22 23:57 Dose: 150 mls/hr Documented By: CALLIE Levofloxacin (Levaquin) 750 mg in 150 mls @ 100 mls/hr IV Q24H [facility] Last Infusion: 10/23/22 21:55 Dose: 0 mls/hr Documented By: Admin: 10/23/22 20:25 Dose: 100 mls/hr Documented By: Metronidazole (Flagyl) 500 mg in 100 mls @ 100 mls/hr IV Q8H [facility] Last Admin: 10/23/22 22:48 Dose: 100 mls/hr Documented By: Infusion: 10/23/22 16:46 Dose: 0 mls/hr Documented By: Admin: 10/23/22 13:57 Dose: 100 mls/hr Documented By: Infusion: 10/23/22 07:14 Dose: 0 mls/hr Documented By: Admin: 10/23/22 05:11 Dose: 100 mls/hr Documented By: CALLIE Influenza Virus Vaccine (Influenza Vaccine Qiv 0.5 Ml Syringe) 0.5 ml IM .ONCE ONE Stop: 10/24/22 09:01 Ketorolac Tromethamine (Ketorolac 30 Mg/Ml Vial) 30 mg IV Q6H [facility] Stop: 10/27/22 22:29 Last Admin: 10/23/22 22:47 Dose: 30 mg Documented By: Admin: 10/23/22 17:14 Dose: 30 mg Documented By: Admin: 10/23/22 11:19 Dose: 30 mg Documented By: Admin: 10/23/22 05:04 Dose: 30 mg Documented By: Admin: 10/22/22 23:57 Dose: 30 mg Documented By: CALLIE Naloxone HCl (Naloxone 0.4 Mg/Ml Vial) 0.2 mg IV Q2MIN PRN PRN Reason: Opiate Reversal Non-Formulary Medication (Brexpiprazole [Rexulti]) 4 mg PO DAILY [facility] Last Admin: 10/23/22 08:08 Dose: Not Given Documented By: WAN Non-Formulary Medication (Modafinil) 400 mg PO DAILY [facility] Last Admin: 10/23/22 08:09 Dose: Not Given Documented By: WAN Nf - Vilazodone 10 (Mg Tablet) 10 mg PO DAILY [facility] Last Admin: 10/23/22 10:12 Dose: Not Given Documented By: WAN Ondansetron HCl (Ondansetron 4 Mg/2 Ml Inj) 4 mg IV Q8HR PRN PRN Reason: Nausea And Vomiting Oxycodone HCl (Oxycodone Ir 5 Mg Tablet) 5 mg PO Q3H PRN PRN Reason: Pain, Moderate (4-6) Discontinued Medications Hydromorphone HCl (Hydromorphone 0.5 Mg Inj) 0.5 mg IV NOW ONE Stop: 10/22/22 20:35 Last Admin: 10/22/22 21:17 Dose: 0.5 mg Documented By: DONNA Sodium Chloride (Normal Saline 0.9%) 1,000 mls @ 1,000 mls/hr IV BOLUS ONE Stop: 10/22/22 21:33 Last Infusion: 10/22/22 22:16 Dose: 0 mls/hr Documented By: Admin: 10/22/22 21:16 Dose: 1,000 mls/hr Documented By: DONNA Levofloxacin (Levaquin) 750 mg in 150 mls @ 100 mls/hr IV NOW ONE Stop: 10/22/22 23:19 Last Infusion: 10/23/22 00:10 Dose: 0 mls/hr Documented By: Admin: 10/22/22 22:30 Dose: 100 mls/hr Documented By: DONNA Metronidazole (Flagyl) 500 mg in 100 mls @ 100 mls/hr IV NOW ONE Stop: 10/22/22 22:50 Last Infusion: 10/22/22 23:57 Dose: 0 mls/hr Documented By: Admin: 10/22/22 22:34 Dose: 100 mls/hr Documented By: DONNA Sodium Chloride (Normal Saline 0.9%) 1,000 mls @ 1,000 mls/hr IV BOLUS ONE Stop: 10/22/22 22:50 Last Infusion: 10/22/22 23:56 Dose: 0 mls/hr Documented By: Admin: 10/22/22 22:29 Dose: 1,000 mls/hr Documented By: DONNA Ondansetron HCl (Ondansetron 4 Mg/2 Ml Inj) 4 mg IV NOW ONE Stop: 10/22/22 20:35 Last Admin: 10/22/22 21:16 Dose: 4 mg Documented By: DONNA Vital Signs Vital signs: Vital Signs - 8 hr 10/22/22 20:36 Temperature 99.3 F Pulse Rate 92 H Respiratory Rate 20 Blood Pressure 136/81 Pulse Oximetry 94 Oxygen Delivery Method Room Air MDM - Abdominal Pain Lab Data 10/22/22 20:24 10/22/22 20:24 Labs: Lab Results 10/22/22 10/22/22 10/22/22 Range/Units 20:24 20:24 20:24 WBC 10.5 (4.5-11.0) X10^3/uL RBC 5.13 (4.5-5.9) X10^6/uL Hgb 15.2 (13.5-17.5) g/dL Hct 44.9 (41-53) % MCV 87.6 (80-100) fL MCH 29.5 (26-34) PG MCHC 33.7 (30-36) % RDW 14.5 (11.6-14.8) % Plt Count 161 (150-400) X10^3/uL Neut % (Auto) 56.5 (50-75) % Lymph % (Auto) 30.9 (25-40) % [place] % (Auto) 9.8 (3-14) % Eos % (Auto) 0.6 L (2-4) % Baso % (Auto) 2.2 H (0-2) % Neut # (Auto) 5900 (9927-1831) /uL Lymph # (Auto) 3200 (2195-2500) /uL [place] # (Auto) 1000 H (0-900) /uL Eos # (Auto) 100 (0-450) /uL Baso # (Auto) 200 H (0-100) /uL Sodium 136 L (137-145) mmol/L Potassium 3.4 (3.4-5.1) mmol/L Chloride 95 L (98-107) mmol/L Carbon Dioxide 28 (22-32) mmol/L BUN 17 (9-20) mg/dL Creatinine 1.10 (0.66-1.25) mg/dL Estimated GFR > 60 (>60) mL/min BUN/Creatinine Ratio 15.5 (6-22) Glucose 120 H (80-110) mg/dL Lactate 1.6 (0.7-2.1) mmol/L Calcium 8.9 (8.4-10.2) mg/dL Magnesium 2.2 (1.6-2.3) mg/dL Total Bilirubin 0.7 (0.2-1.3) mg/dL AST 36 (17-59) IU/L ALT 38 (<50) IU/L Alkaline Phosphatase 73 (38-126) U/L Total Protein 8.0 (6.3-8.2) g/dL Albumin 4.5 (3.5-5.0) g/dL Globulin 3.5 (1.7-4.1) g/dL Albumin/Globulin Ratio 1.3 (1.0-2.8) Lipase 86 (23-300) U/L Imaging Data CT scan - abdomen/pelvis: Radiologist's Impression: Close Abdomen/Pelvis CT (Signed) Wily Graham - 10/22/22 Chest/Abdomen X-ray (Signed) Wily Graham - 10/22/22 Hip X-Ray (Signed) Michelle Pimentel - 05/01/22 Sacrum and Coccyx X-Ray (Signed) Cameron Schaeffer - 04/22/21 Lumbar Spine X-Ray (Signed) Cameron Schaeffer - 04/22/21 [place] [address] CT Scan Report Signed Patient: Migel Shafer MR#: [id number] : 1960 Acct:[id number] Age/Sex: 62 / M Date of Service: 10/22/22 Loc: 90A-1 Accession Number: [id number] ?? Procedure: CT abdomen pelvis w con Ordering Provider: Gopla Cleary D.O. PROCEDURE:? CT ABDOMEN PELVIS W CON ? INDICATIONS:? severe abdominal pain ? TECHNIQUE:? After the administration of IV contrast, axial sections were acquired from the lung bases to the pubic symphysis.? Coronal and sagittal reformats were performed.? For radiation dose reduction, the following was used:? automated exposure control, adjustment of mA and/or kV according to patient size. ? COMPARISON:? [facility], CR, XR ACUTE ABDOMEN SERIES, 10/22/2022, 20:49. ? FINDINGS:? Image quality:? Excellent.? ? Lung bases:? There is bilateral dependent atelectasis most prominent posteriorly within the right lower lobe.? ? Heart:? Heart is normal in size. ? ? ABDOMEN: Liver:? No mass lesion. Gallbladder:? Within normal limits without calcified gallstones.? ? Biliary ducts:? No biliary ductal dilatation.? ? Pancreas:? There are few punctate calcifications within the pancreas consistent with sequelae of chronic pancreatitis.? No peripancreatic fat stranding or fluid to suggest acute pancreatitis.? No pancreatic duct dilatation or discrete pancreatic mass identified. Spleen:? Normal in size.? ? Adrenal Glands:? No adrenal nodules.? ? Kidneys and Ureters:? No hydronephrosis.? ? ? Bowel and peritoneum:? Stomach and small bowel loops are normal in caliber and wall thickness.? The appendix is normal in appearance.? There is colonic diverticulosis with associated diverticular and segmental colonic wall thickening in the mid sigmoid colon in the right lower quadrant consistent with acute diverticulitis.? There is an associated adjacent loculated collection primarily containing gas consistent with a diverticular abscess measuring approximately 2.0 x 1.9 cm.? A few adjacent foci of extraluminal gas are demonstrated as well as additional scattered foci of free air in the right abdomen extending to the right subdiaphragmatic region.? Findings are consistent sequelae of perforated diverticulitis. ? Ventral Wall: ? No hernia.? Abdominal Nodes:? No retroperitoneal or mesenteric adenopathy by size criteria.? Vessels:? Aorta and inferior vena cava are normal in size.? ? PELVIS: Pelvic Organs:? Unremarkable.? ? Bladder:? Unremarkable.? ? Pelvic Nodes: No enlarged lymph nodes.? Miscellaneous: No inguinal hernias are seen. ? ? ? Bones:? Visualized osseous structures demonstrate no suspicious focal lesions. ? IMPRESSION:? ? 1. Acute diverticulitis in the sigmoid colon with an associated gas-containing diverticular abscess and foci of free air consistent with perforation. ? Findings reported to Dr. Cleary's physician assistant track coach on 10/22/2022 at 9:46 p.m.. ? ? Dictated by: Wily Graham M.D. on 10/22/2022 at 22:00 ? ? Approved by: Wily Graham M.D. on 10/22/2022 at 22:05 ? MDM Narrative Medical decision making narrative: CC: 62-year-old male with severe right lower quadrant pain Complicating co-morbidities: Age greater than 60, COPD, hyperlipidemia Data collected from: Patient and paramedics Medical records reviewed: Multiple prior notes found in our EMR Differential considered, but not limited to: Bowel obstruction, kidney stone, appendicitis, diverticulitis versus other Exam documented above, pertinent findings include: Significant abdominal pain, distention Lab Test results independently reviewed as above. Pertinent findings: No significant elevated white blood cell count or left shift Independently reviewed EKG as above Imaging studies independently reviewed: CT notes diverticulitis with perforation and possible small abscess Consultations: Discussed with on-call General surgery (Dr. Snider) Treatments: Fluids, pain control, antibiotics Re-evaluations: Improved symptoms after above-stated therapies Discussion: Patient presents with abdominal pain and findings consistent with diverticulitis with perforation and abscess, patient requires hospitalization for ongoing abdominal exams, IV antibiotics, NPO status, fluids to monitor for progression of illness and possible surgical intervention Discharge Plan Departure Patient Disposition: Admitted As Inpatient Clinical Impression: Perforated diverticulum Admit Date/Time: 10/22/22 21:58 Admit Provider: Ugo Snider
[2022-10-22 20:42] LABS: Add Manual Diff / Slide Review NO; Basophils Absolute Auto 200 /uL (0-100); Basophils Percent Auto 2.2 % (0-2); Eosinophils Absolute Auto 100 /uL (0-450); Eosinophils Percent Auto 0.6 % (2-4); Hematocrit 44.9 % (41-53); Hemoglobin 15.2 g/dL (13.5-17.5); Lymphocytes Absolute Auto 3200 /uL (1100-4500); Lymphocytes Percent Auto 30.9 % (25-40); Mean Corpuscular HGB Conc 33.7 % (30-36); Mean Corpuscular Hemoglobin 29.5 PG (26-34); Mean Corpuscular Volume 87.6 fL (80-100); Monocytes Absolute Auto 1000 /uL (0-900); Monocytes Percent Auto 9.8 % (3-14); Neutrophils Absolute Auto 5900 /uL (1500-7000); Neutrophils Percent Auto 56.5 % (50-75); Platelet Count 161 X10^3/uL (150-400); Red Blood Cell Count 5.13 X10^6/uL (4.5-5.9); Red Cell Distribution Width 14.5 % (11.6-14.8); White Blood Cell Count 10.5 X10^3/uL (4.5-11.0)
[2022-10-22 20:54] LABS: Lactate (Lactic Acid) 1.6 mmol/L (0.7-2.1)
[2022-10-22 20:55] LABS: Alanine Aminotransferase 38 IU/L (<50); Albumin 4.5 g/dL (3.5-5.0); Albumin Globulin Ratio 1.3 (1.0-2.8); Alkaline Phosphatase 73 U/L (38-126); Aspartate Aminotransferase 36 IU/L (17-59); BUN Creatinine Ratio 15.5 (6-22); Bilirubin Total 0.7 mg/dL (0.2-1.3); Blood Urea Nitrogen 17 mg/dL (9-20); Calcium 8.9 mg/dL (8.4-10.2); Carbon Dioxide 28 mmol/L (22-32); Chloride 95 mmol/L (98-107); Estimated Glomerular Filt Rate > 60 mL/min (>60); Globulin 3.5 g/dL (1.7-4.1); Glucose 120 mg/dL (80-110); HEMOLYSIS 19 (0-50); Lipase 86 U/L (23-300); Magnesium 2.2 mg/dL (1.6-2.3); Potassium 3.4 mmol/L (3.4-5.1); Sodium 136 mmol/L (137-145)
[2022-10-22] MEDS: ONDANSETRON 4 MG/2 ML INJ IV (21:16)
[2022-10-22] MEDS: SODIUM CHLORIDE 0.9% 1,000 ML 1000 ML IV ×2 (21:16→22:29)
[2022-10-22] MEDS: HYDROMORPHONE 0.5 MG INJ IV ×2 (21:17→23:58)
--- NOTE | 2022-10-22 21:21 | DI.CT.S_ITS ---
PROCEDURE: CT ABDOMEN PELVIS W CON INDICATIONS: severe abdominal pain TECHNIQUE: After the administration of IV contrast, axial sections were acquired from the lung bases to the pubic symphysis. Coronal and sagittal reformats were performed. For radiation dose reduction, the following was used: automated exposure control, adjustment of mA and/or kV according to patient size. COMPARISON: [facility], CR, XR ACUTE ABDOMEN SERIES, 10/22/2022, 20:49. FINDINGS: Image quality: Excellent. Lung bases: There is bilateral dependent atelectasis most prominent posteriorly within the right lower lobe. Heart: Heart is normal in size. ABDOMEN: Liver: No mass lesion. Gallbladder: Within normal limits without calcified gallstones. Biliary ducts: No biliary ductal dilatation. Pancreas: There are few punctate calcifications within the pancreas consistent with sequelae of chronic pancreatitis. No peripancreatic fat stranding or fluid to suggest acute pancreatitis. No pancreatic duct dilatation or discrete pancreatic mass identified. Spleen: Normal in size. Adrenal Glands: No adrenal nodules. Kidneys and Ureters: No hydronephrosis. Bowel and peritoneum: Stomach and small bowel loops are normal in caliber and wall thickness. The appendix is normal in appearance. There is colonic diverticulosis with associated diverticular and segmental colonic wall thickening in the mid sigmoid colon in the right lower quadrant consistent with acute diverticulitis. There is an associated adjacent loculated collection primarily containing gas consistent with a diverticular abscess measuring approximately 2.0 x 1.9 cm. A few adjacent foci of extraluminal gas are demonstrated as well as additional scattered foci of free air in the right abdomen extending to the right subdiaphragmatic region. Findings are consistent sequelae of perforated diverticulitis. Ventral Wall: No hernia. Abdominal Nodes: No retroperitoneal or mesenteric adenopathy by size criteria. Vessels: Aorta and inferior vena cava are normal in size. PELVIS: Pelvic Organs: Unremarkable. Bladder: Unremarkable. Pelvic Nodes: No enlarged lymph nodes. Miscellaneous: No inguinal hernias are seen. Bones: Visualized osseous structures demonstrate no suspicious focal lesions. IMPRESSION: 1. Acute diverticulitis in the sigmoid colon with an associated gas-containing diverticular abscess and foci of free air consistent with perforation. Findings reported to Dr. Cleary's physician pharmacist assistant on 10/22/2022 at 9:46 p.m.. Dictated by: Wily Graham M.D. on 10/22/2022 at 22:00 Approved by: Wily Graham M.D. on 10/22/2022 at 22:05
--- NOTE | 2022-10-22 21:52 | PC.NURSE ---
Notified provider of radiology results that midlevel accepted from radiologist. New orders placed.
[2022-10-22 22:25] LABS: COVID19 -Nasal RAPID Negative (Negative)
[2022-10-22] MEDS: levoFLOXacin 750 MG/150 ML PIGGYBACK 100 MG IV (22:30)
[2022-10-22] MEDS: metroNIDAZOLE 500 MG/100 ML PIGGYBACK 100 MG IV (22:34)
[2022-10-22] MEDS: LACTATED RINGERS 1,000 ML 150 ML IV (23:57)
[2022-10-22] MEDS: KETOROLAC 30 MG/ML VIAL IV (23:57)
[2022-10-23] VITALS (8 sets, daily range): BP systolic 96–135; BP diastolic 54–72; PULSE 69–99; RESP 17–20; TEMP 36.1–38.7; O2SAT 92–96
[2022-10-23] MEDS: HYDROMORPHONE 0.5 MG INJ IV ×5 (03:32→22:17)
[2022-10-23] MEDS: KETOROLAC 30 MG/ML VIAL IV ×4 (05:04→22:47)
[2022-10-23] MEDS: metroNIDAZOLE 500 MG/100 ML PIGGYBACK 100 MG IV ×3 (05:11→22:48)
[2022-10-23 06:21] LABS: Add Manual Diff / Slide Review NO; Basophils Absolute Auto 0 /uL (0-100); Basophils Percent Auto 0.3 % (0-2); Eosinophils Absolute Auto 100 /uL (0-450); Eosinophils Percent Auto 0.6 % (2-4); Hematocrit 36.9 % (41-53); Hemoglobin 12.6 g/dL (13.5-17.5); Lymphocytes Absolute Auto 2000 /uL (1100-4500); Lymphocytes Percent Auto 24.2 % (25-40); Mean Corpuscular HGB Conc 34.2 % (30-36); Mean Corpuscular Hemoglobin 29.5 PG (26-34); Mean Corpuscular Volume 86.3 fL (80-100); Monocytes Absolute Auto 1000 /uL (0-900); Monocytes Percent Auto 11.8 % (3-14); Neutrophils Absolute Auto 5200 /uL (1500-7000); Neutrophils Percent Auto 63.1 % (50-75); Platelet Count 127 X10^3/uL (150-400); Red Blood Cell Count 4.28 X10^6/uL (4.5-5.9); Red Cell Distribution Width 14.3 % (11.6-14.8); White Blood Cell Count 8.2 X10^3/uL (4.5-11.0)
[2022-10-23 06:31] LABS: BUN Creatinine Ratio 18.3 (6-22); Blood Urea Nitrogen 15 mg/dL (9-20); Calcium 7.5 mg/dL (8.4-10.2); Carbon Dioxide 26 mmol/L (22-32); Chloride 104 mmol/L (98-107); Estimated Glomerular Filt Rate > 60 mL/min (>60); Glucose 94 mg/dL (80-110); HEMOLYSIS < 15 (0-50); Potassium 3.7 mmol/L (3.4-5.1); Sodium 136 mmol/L (137-145)
[2022-10-23] MEDS: LACTATED RINGERS 1,000 ML 150 ML IV ×2 (07:52→13:57)
--- NOTE | 2022-10-23 09:01 | PM.HP.1 ---
History of Present Illness History of Present Illness Date Patient Seen: 10/23/22 Time Patient Seen: 09:02 Chief complaint: Abd Pain Narrative: 62-year-old man admitted last night with perforated diverticulitis. He noticed what he thought were abdominal flu-like symptoms early yesterday and then developed severe right lower quadrant abdominal pain last night while watching TV. He has never been diagnosed with diverticulosis or diverticulitis before. He has never had a colonoscopy. Has had a laparoscopic diaphragmatic hernia repair several years ago at . He was started on IV ciprofloxacin and Flagyl last night in the ER. Patient History Medical History Abnormal chest x-ray (~2016) Anxiety Benign familial tremor (~2014) Bipolar disease, chronic Chicken pox (~1969) COPD (chronic obstructive pulmonary disease) (~2017) Depression Essential tremor Fractures History of recurrent ear infection (~1964) Kidney stones (~1994) Low testosterone in male Measles (~1966) Mixed hyperlipidemia Mumps (~1965) Sciatica of left side Seasonal allergies Sleep apnea (~2014) Stasis dermatitis Substance abuse Surgical History Anesthesia History of surgery (~2009) Mass (~2015) Family & Social History Family History Father Diabetes mellitus History of heart disease Hyperlipidemia Hypertension Mother Cancer Sister Sjogren's syndrome Social History: household members family Prior Living Arrangements House Safety & Behavioral: Feels Safe in Current Yes Environment Been Physically Hurt or No Threatened By a Person Tobacco & Substance use: Smoking Status Former smoker alcohol intake former alcohol intake frequency 0-2 drinks per day Substance Use Type marijuana Meds Home Medications and Allergies Home Medications Medication Instructions Recorded Confirmed Type modafinil 200 mg tablet 400 mg PO DAILY 03/14/22 10/22/22 History atorvastatin 20 mg tablet 20 mg PO BEDTIME #90 tabs 05/02/22 10/22/22 Rx brexpiprazole 4 mg tablet (Rexulti) 4 mg PO DAILY 05/02/22 10/22/22 History meloxicam 7.5 mg tablet 7.5 mg PO DAILY #30 tabs 08/15/22 10/22/22 Rx vilazodone 10 mg tablet 10 mg PO DAILY 10/22/22 10/22/22 History Allergies Allergy/AdvReac Type Severity Reaction Status Date / Time Penicillins Allergy Intermediate Hives Verified 10/22/22 21:10 Exam Vital Signs (past 8 hours): - 10/23/22 04:00 10/23/22 08:00 Temperature 98.2 F 97.7 F Pulse Rate 79 69 Respiratory Rate 20 17 Blood Pressure 105/61 96/54 L Pulse Oximetry 94 93 Oxygen Flow Rate 0 0 Oxygen Delivery Method Room Air Oxygen Flow Rate 0 Const General: No acute distress Other: Normal respiratory pattern Abdomen is moderately distended and tender to palpation greatest in the right lower quadrant Objective Labs 10/23/22 06:00 10/23/22 06:00 Labs: Laboratory Results - last 24 hr 10/22/22 10/22/22 10/22/22 20:24 20:24 20:24 WBC 10.5 RBC 5.13 Hgb 15.2 Hct 44.9 MCV 87.6 MCH 29.5 MCHC 33.7 RDW 14.5 Plt Count 161 Neut % (Auto) 56.5 Lymph % (Auto) 30.9 [place] % (Auto) 9.8 Eos % (Auto) 0.6 L Baso % (Auto) 2.2 H Neut # (Auto) 5900 Lymph # (Auto) 3200 [place] # (Auto) 1000 H Eos # (Auto) 100 Baso # (Auto) 200 H Sodium 136 L Potassium 3.4 Chloride 95 L Carbon Dioxide 28 BUN 17 Creatinine 1.10 Estimated GFR > 60 BUN/Creatinine Ratio 15.5 Glucose 120 H Lactate 1.6 Calcium 8.9 Magnesium 2.2 Total Bilirubin 0.7 AST 36 ALT 38 Alkaline Phosphatase 73 Total Protein 8.0 Albumin 4.5 Globulin 3.5 Albumin/Globulin Ratio 1.3 Lipase 86 SARS-CoV-2 (PCR) 10/22/22 10/23/22 10/23/22 22:04 06:00 06:00 WBC 8.2 RBC 4.28 L Hgb 12.6 L Hct 36.9 L MCV 86.3 MCH 29.5 MCHC 34.2 RDW 14.3 Plt Count 127 L Neut % (Auto) 63.1 Lymph % (Auto) 24.2 L [place] % (Auto) 11.8 Eos % (Auto) 0.6 L Baso % (Auto) 0.3 Neut # (Auto) 5200 Lymph # (Auto) 2000 [place] # (Auto) 1000 H Eos # (Auto) 100 Baso # (Auto) 0 Sodium 136 L Potassium 3.7 Chloride 104 Carbon Dioxide 26 BUN 15 Creatinine 0.82 Estimated GFR > 60 BUN/Creatinine Ratio 18.3 Glucose 94 Lactate Calcium 7.5 L Magnesium Total Bilirubin AST ALT Alkaline Phosphatase Total Protein Albumin Globulin Albumin/Globulin Ratio Lipase SARS-CoV-2 (PCR) Negative Assessment & Plan Assessment and plan (1) Perforated diverticulum: Status: Acute Plan Based on his normal white count and normal vital signs it is reasonable to treat medically with IV antibiotics. He can be on a clear liquid diet and start taking his home meds. Time Spent With Patient Critical Care time: I spent a total of [] minutes of critical care time on this patient's care today; this time is exclusive of procedural time. Quality VTE Deep Vein Thrombosis/Pulmonary Embolism Present on Admission: No
[2022-10-23] MEDS: ENOXAPARIN 40 MG/0.4 ML SYRINGE SUBCUT (11:19)
--- NOTE | 2022-10-23 11:25 | CM.DANOTE ---
Initial Discharge Assessment Note: Case reviewed, met with patient. Introduced self and role. Payer: [employer] Options and Medicaid PCP: Dr Ted Oneill 62 year old single male admitted yesterday with abdominal pain and diagnosed with diverticulitis after imaging. Surgical consult says no surgery needed, just IV antibiotics. Dietary consult. Patient is independent in ADLs and drives. He lives with his mother. Desire to return home on dc. Plan: When medically cleared, return home to care of mother. [place] Discharge Planning/Care Management CM Discharge Assessment Start: 10/23/22 11:24 Freq: Status: Active Protocol: Document 10/23/22 11:24 (Rec: 10/23/22 11:25 [id number]) Discharge Planning Assessment Assigned Marketing Intelligence Manager Dipika Stark RN/MARYP Advance Directives? No Advance Directives on File No History Provided By Patient Prior Living Arrangements House Household Members family Comment Lives with his mother Dipika Type of transporation used prior to Drives own vehicle admit Independent with ADL's Yes Is patient alert and oriented? Yes Caregiver for Another No Barriers to Discharge No Discharge Plan Home Referrals Initiated None needed Whiteboard Updated in Patient Room with Yes name and ext. # of Marketing Intelligence Manager Review Status In Process Next Review Type Continued Stay Review
[2022-10-23] MEDS: ACETAMINOPHEN 325 MG TABLET 650 MG PO (15:21)
[2022-10-23] MEDS: ATORVASTATIN 20 MG TABLET PO (20:25)
[2022-10-23] MEDS: levoFLOXacin 750 MG/150 ML PIGGYBACK 100 MG IV (20:25)
[2022-10-24] VITALS (8 sets, daily range): BP systolic 116–126; BP diastolic 61–71; PULSE 82–91; RESP 17–21; TEMP 36.4–37.2; O2SAT 92–96
[2022-10-24] MEDS: LACTATED RINGERS 1,000 ML 150 ML IV ×2 (00:44→08:34)
[2022-10-24] MEDS: KETOROLAC 30 MG/ML VIAL IV ×2 (04:43→10:44)
[2022-10-24] MEDS: ACETAMINOPHEN 325 MG TABLET 650 MG PO (05:58)
[2022-10-24] MEDS: metroNIDAZOLE 500 MG/100 ML PIGGYBACK 100 MG IV (05:58)
[2022-10-24] MEDS: OXYCODONE IR 5 MG TABLET PO ×2 (05:58→12:47)
[2022-10-24 06:07] LABS: Add Manual Diff / Slide Review NO; Basophils Absolute Auto 0 /uL (0-100); Basophils Percent Auto 0.3 % (0-2); Eosinophils Absolute Auto 100 /uL (0-450); Eosinophils Percent Auto 1.2 % (2-4); Hematocrit 36.2 % (41-53); Hemoglobin 12.2 g/dL (13.5-17.5); Lymphocytes Absolute Auto 1700 /uL (1100-4500); Mean Corpuscular HGB Conc 33.7 % (30-36); Mean Corpuscular Hemoglobin 29.4 PG (26-34); Mean Corpuscular Volume 87.1 fL (80-100); Monocytes Absolute Auto 700 /uL (0-900); Monocytes Percent Auto 9.3 % (3-14); Neutrophils Absolute Auto 5200 /uL (1500-7000); Neutrophils Percent Auto 67.2 % (50-75); Platelet Count 120 X10^3/uL (150-400); Red Blood Cell Count 4.16 X10^6/uL (4.5-5.9); Red Cell Distribution Width 14.2 % (11.6-14.8); White Blood Cell Count 7.7 X10^3/uL (4.5-11.0)
[2022-10-24 06:21] LABS: BUN Creatinine Ratio 16.7 (6-22); Blood Urea Nitrogen 12 mg/dL (9-20); Calcium 7.8 mg/dL (8.4-10.2); Carbon Dioxide 25 mmol/L (22-32); Chloride 103 mmol/L (98-107); Estimated Glomerular Filt Rate > 60 mL/min (>60); Glucose 83 mg/dL (80-110); HEMOLYSIS < 15 (0-50); Potassium 3.5 mmol/L (3.4-5.1); Sodium 137 mmol/L (137-145)
[2022-10-24] MEDS: ENOXAPARIN 40 MG/0.4 ML SYRINGE SUBCUT (08:33)
[2022-10-24] MEDS: POTASSIUM CHLORIDE 20 MEQ TAB 40 MEQ PO (10:45)
[2022-10-24] MEDS: VILAZODONE 10 MG 10 EACH PO (10:45)
[2022-10-24] MEDS: BREXPIPRAZOLE 4 MG 4 EACH PO (10:46)
[2022-10-24] MEDS: MODAFINIL 200 MG 400 EACH PO (10:47)
--- NOTE | 2022-10-24 12:21 | PM.PN.1 ---
Subjective Subjective Date Patient Seen: 10/24/22 Time Patient Seen: 12:22 Interval history: Migel feels much better today although he still has quite a bit of abdominal tenderness. He is tolerating clear liquids, has had a bowel movement and has not needed IV pain medication. Exam Vital Signs (past 8 hours): - 10/24/22 06:00 10/24/22 08:00 10/24/22 10:00 Temperature 97.6 F Pulse Rate 82 Respiratory Rate 17 Blood Pressure 116/71 Pulse Oximetry 94 92 92 Oxygen Delivery Method Room Air Room Air Oxygen Flow Rate 0 0 10/24/22 11:00 Temperature 97.6 F Pulse Rate 82 Respiratory Rate 17 Blood Pressure 126/70 Pulse Oximetry 96 Oxygen Delivery Method Oxygen Flow Rate 0 Oxygen Delivery Method Room Air Oxygen Flow Rate 0 Narrative Exam Narrative: Abdomen still distended and quiet tender to percussion Objective Labs 10/24/22 05:49 10/24/22 05:49 Labs: Laboratory Results - last 24 hr 10/24/22 10/24/22 05:49 05:49 WBC 7.7 RBC 4.16 L Hgb 12.2 L Hct 36.2 L MCV 87.1 MCH 29.4 MCHC 33.7 RDW 14.2 Plt Count 120 L Neut % (Auto) 67.2 Lymph % (Auto) 22.0 L [place] % (Auto) 9.3 Eos % (Auto) 1.2 L Baso % (Auto) 0.3 Neut # (Auto) 5200 Lymph # (Auto) 1700 [place] # (Auto) 700 Eos # (Auto) 100 Baso # (Auto) 0 Sodium 137 Potassium 3.5 Chloride 103 Carbon Dioxide 25 BUN 12 Creatinine 0.72 Estimated GFR > 60 BUN/Creatinine Ratio 16.7 Glucose 83 Calcium 7.8 L [facility] Medical History Abnormal chest x-ray (~2016) Anxiety Benign familial tremor (~2014) Bipolar disease, chronic Chicken pox (~1969) COPD (chronic obstructive pulmonary disease) (~2017) Depression Essential tremor Fractures History of recurrent ear infection (~1964) Kidney stones (~1994) Low testosterone in male Measles (~1966) Mixed hyperlipidemia Mumps (~1965) Sciatica of left side Seasonal allergies Sleep apnea (~2014) Stasis dermatitis Substance abuse Surgical History Anesthesia History of surgery (~2009) Mass (~2016) Family History Father Diabetes mellitus History of heart disease Hyperlipidemia Hypertension Mother Cancer Sister Sjogren's syndrome Social History household members: family Smoking Status: Former smoker Tobacco: How many years used: 40 second hand exposure: No alcohol intake: former substance use type: marijuana (Smoke every so often) Assessment & Plan Assessment and plan (1) Perforated diverticulum: Status: Acute Plan He is hoping to go home today. As long as he can tolerate his clear liquids and take oral antibiotics he will be able to discharge later today. Time Spent With Patient Critical Care time: I spent a total of [] minutes of critical care time on this patient's care today; this time is exclusive of procedural time. Quality VTE Deep Vein Thrombosis/Pulmonary Embolism Present on Admission: No
--- NOTE | 2022-10-24 15:24 | P.DS_ITS ---
History of Present Illness History of Present Illness Chief complaint: Abd Pain Narrative: 62-year-old man admitted last night with perforated diverticulitis. He noticed what he thought were abdominal flu-like symptoms early yesterday and then developed severe right lower quadrant abdominal pain last night while watching TV. He has never been diagnosed with diverticulosis or diverticulitis before. He has never had a colonoscopy. Has had a laparoscopic diaphragmatic hernia repair several years ago at . He was started on IV ciprofloxacin and Flagyl last night in the ER. Discharge Providers Provider Date of admission: 10/22/22 21:58 Discharge Date: 10/24/22 Primary care physician: SERENITY Jose Discharge provider: Rickey Lofton MD Summary Hospital Course Discharge Diagnosis: Perforated diverticulitis Hospital Course: The patient was admitted for perforated diverticulitis. His white blood cell count was never elevated and his vital signs remained normal however he was quite tender on exam. He was given IV antibiotics and clear liquid diet. By hospital day #1 he was significantly improved and was transitioned to oral antibiotics. He was sent home with oral antibiotics with plans for a follow-up CT scan in about a week. Exam Vital Signs (past 8 hours): - 10/24/22 08:00 10/24/22 10:00 10/24/22 11:00 Temperature 97.6 F 97.6 F Pulse Rate 82 82 Respiratory Rate 17 17 Blood Pressure 116/71 126/70 Pulse Oximetry 92 92 96 Oxygen Delivery Method Room Air Oxygen Flow Rate 0 0 0 10/24/22 14:00 Temperature Pulse Rate Respiratory Rate Blood Pressure Pulse Oximetry 96 Oxygen Delivery Method Room Air Oxygen Flow Rate 0 Oxygen Delivery Method Room Air Oxygen Flow Rate 0 Objective Labs 10/24/22 05:49 10/24/22 05:49 Labs: Laboratory Results - last 24 hr 10/24/22 10/24/22 05:49 05:49 WBC 7.7 RBC 4.16 L Hgb 12.2 L Hct 36.2 L MCV 87.1 MCH 29.4 MCHC 33.7 RDW 14.2 Plt Count 120 L Neut % (Auto) 67.2 Lymph % (Auto) 22.0 L [place] % (Auto) 9.3 Eos % (Auto) 1.2 L Baso % (Auto) 0.3 Neut # (Auto) 5200 Lymph # (Auto) 1700 [place] # (Auto) 700 Eos # (Auto) 100 Baso # (Auto) 0 Sodium 137 Potassium 3.5 Chloride 103 Carbon Dioxide 25 BUN 12 Creatinine 0.72 Estimated GFR > 60 BUN/Creatinine Ratio 16.7 Glucose 83 Calcium 7.8 L PFSH Medical History Abnormal chest x-ray (~2017) Anxiety Benign familial tremor (~2014) Bipolar disease, chronic Chicken pox (~1969) COPD (chronic obstructive pulmonary disease) (~2017) Depression Essential tremor Fractures History of recurrent ear infection (~1964) Kidney stones (~1994) Low testosterone in male Measles (~1966) Mixed hyperlipidemia Mumps (~1965) Sciatica of left side Seasonal allergies Sleep apnea (~2014) Stasis dermatitis Substance abuse Surgical History Anesthesia History of surgery (~2009) Mass (~2015) Family History Father Diabetes mellitus History of heart disease Hyperlipidemia Hypertension Mother Cancer Sister Sjogren's syndrome Social History household members: family Smoking Status: Former smoker Tobacco: How many years used: 40 second hand exposure: No alcohol intake: former substance use type: marijuana (Smoke every so often) Discharge Plan Discharge Plan Patient Disposition: Home Provider Discharge Comment: A CT scan will be ordered for next week to make sure the diverticulitis is resolving. If you haven't heard anything by Sunday of next week call [facility] office. Discharge orders & Medications Prescriptions: New oxycodone 5 mg tablet 5 mg PO Q8H PRN (Reason: pain) Qty: 14 0RF ciprofloxacin HCl 750 mg tablet 750 mg PO BID Qty: 20 0RF metronidazole 500 mg tablet 500 mg PO Q12H Qty: 20 0RF Continued meloxicam 7.5 mg tablet 7.5 mg PO DAILY Qty: 30 2RF modafinil 200 mg tablet 400 mg PO DAILY Rexulti 4 mg tablet 4 mg PO DAILY Rx Instructions: administer on day 8 for starting therapy atorvastatin 20 mg tablet 20 mg PO BEDTIME Qty: 90 3RF vilazodone 10 mg tablet 10 mg PO DAILY Label Comments: TAKE ONE TABLET BY MOUTH ONE TIME DAILY Follow up/Referrals: Ted Oneill ARNP [Primary Care Provider] - Visit Report/Discharge Packet Stand Alone Forms: Patient Portal/API, Stroke Signs & Symptoms Discharge Data Primary Care Provider: Ted Oneill Quality VTE Deep Vein Thrombosis/Pulmonary Embolism Present on Admission: No
--- NOTE | 2022-10-24 16:21 | PC.NURSE ---
Pt dressed self and x2 IVs were d/c'd. Reviewed new abx meds and the need to take the full dose for each as well as f/u with surgical clinic to get a CT in a week. Education regarding abx and managing diverticulitis was given and pt stated understanding with out further questions/concerns. Pt left unit @ 1400 via wheelchair accompanied by CHEMICAL PLANT TECHNICAL DIRECTOR to a POV with pt's mother and all his belongings and meds from our pharmacy.
== END 2022-10-24 14:00 | disposition home or self-care (01) | DRG 244 ==
LOC: ED 21:59 → AC 21:59
PROVIDERS: Admitting Provider Surgery; Emergency Provider Emergency Medicine; Family Provider Nurse Practitioner Family; PCP Registered Nurse Diabetes Educator; Referring Provider Emergency Medicine; Visit Provider Surgery
DX: K57.20 Diverticulitis of large intestine with perforation and abscess without bleeding (principal); G47.30 Sleep apnea, unspecified; F32.A Depression, unspecified; E78.2 Mixed hyperlipidemia; Z87.891 Personal history of nicotine dependence; Z20.822 Contact with and (suspected) exposure to COVID-19
CPT/HCPCS: 36415; 74022; 74177; 80048; 80053; 83605; 83690; 83735; 85025; 87040; 87635; 96365; 96368; 96375; 99221; 99238; 99284; C9803; J1170; J1650; J1885; J1956; J2405; Q9967

== ENCOUNTER → 2022-11-20 10:21 | Outpatient (CLI) | payer OTHER, MEDICAID, SELFPAY ==
[2022-11-02 15:38] VITALS: BMI 36.5
--- NOTE | 2022-11-20 10:22 | DI.CT.S_ITS ---
PROCEDURE: CT ABDOMEN PELVIS W CON INDICATIONS: Diverticulitis follow up TECHNIQUE: After the administration of intravenous contrast, axial sections acquired from the lung bases to the pubic symphysis. Coronal and sagittal reformats were performed. For radiation dose reduction, the following was used: automated exposure control, adjustment of mA and/or kV according to patient size. COMPARISON: [facility], CT, CT ABDOMEN PELVIS W CON, 10/22/2022, 21:33. CT 04/17/2017 FINDINGS: Image quality: Excellent. Lung bases: Stable 2 mm solid nodule in the lateral left lower lobe compared with 2017, statistically benign. Heart: No significant findings. ABDOMEN: Liver: Subcentimeter hypoattenuating lesions, too small to characterize by CT. Gallbladder: Unremarkable. Biliary ducts: Unremarkable. Pancreas: A few coarse calcifications, likely indicating chronic parenchymal disease. Spleen: Unremarkable. Adrenal Glands: Unremarkable. Kidneys and Ureters: Unremarkable. Stomach and Bowel: Mild residual natalia-diverticular fat stranding of the sigmoid colon, with trace extraluminal air. Peritoneum: No abnormal intraperitoneal fluid. No free air. Ventral Wall: No hernias. Abdominal Nodes: No retroperitoneal or mesenteric adenopathy by size criteria. Vessels: Aorta and inferior vena cava are normal in size. PELVIS: Pelvic Organs: Unremarkable. Bladder: Unremarkable. Pelvic Nodes: No enlarged lymph nodes. Miscellaneous: Small left inguinal hernia containing fat. Bones: Unremarkable. IMPRESSION: Trace residual sigmoid diverticulitis with associated tiny contained perforation. No drainable collection. Dictated by: Bert Smith M.D. on 11/20/2022 at 13:22 Approved by: Bert Smith M.D. on 11/20/2022 at 13:26
== END ==
PROVIDERS: Family Provider Nurse Practitioner Family; PCP Registered Nurse Diabetes Educator; Referring Provider Surgery; Visit Provider Surgery
DX: K57.80 Diverticulitis of intestine, part unspecified, with perforation and abscess without bleeding (principal); K40.90 Unilateral inguinal hernia, without obstruction or gangrene, not specified as recurrent; R91.1 Solitary pulmonary nodule
CPT/HCPCS: 74177; Q9967

== ENCOUNTER 2023-03-08 07:03 | Day surgery (SDC) | payer OTHER, MEDICAID, SELFPAY ==
[2022-11-02 15:38] VITALS: BMI 36.5
[2023-03-08] VITALS (7 sets, daily range): BP systolic 111–151; BP diastolic 70–88; PULSE 65–77; RESP 12–116; TEMP 36.2–37; O2SAT 91–98; BMI 34.4
--- NOTE | 2023-03-08 | PATH_ITS ---
[facility] Accession Number: [id number] No. of containers..01 Tissue . 01 Material submitted: . colon - SIGMOID POLYPS . 01 Diagnosis: Sigmoid Colon Polyps, Biopsy: Hyperplastic polyp. Additional colonic mucosa with no diagnostic abnormality, consistent with polypoid redundancy. . GLADIS 03/19/2023 1212 Local . 01 Electronically signed: . Jacque Contreras MD, Pathologist NPI- [id number] . 01 Gross description: . The specimen is received in formalin labeled with the patient's name, , and sigmoid polyps consists of two butts soft tissue fragments measuring 0.3 cm each in greatest dimension. Submitted entirely in cassette A1. ([id number]) /MRV 03/14/20239 Local . 01 Pathologist provided ICD-10: K63.5, Z87.19, Z12.11, D12.5 . 01 CPT . 449843 Specimen Comment: A courtesy copy of this report has been sent to [phone] Performed at: 01 [facility] [address] [place] [address], [place], [place] [id number] MD Wily Patten MD Phone: [phone]
[2023-03-08] MEDS: LACTATED RINGERS 1,000 ML 42 ML IV (07:18)
--- NOTE | 2023-03-08 08:16 | PM.HP.1 ---
History of Present Illness History of Present Illness Date Patient Seen: 03/08/23 Time Patient Seen: 08:16 Chief complaint: Colonoscopy Narrative: Migel is a 62-year-old man who has never had a colonoscopy before. He was hospitalized briefly in September for perforated diverticulitis but that has resolved now. [facility] Medical History Abnormal chest x-ray (~2016) Anxiety Benign familial tremor (~2014) Bipolar disease, chronic Chicken pox (~1969) COPD (chronic obstructive pulmonary disease) (~2017) Depression Essential tremor Fractures History of recurrent ear infection (~1964) Kidney stones (~1994) Low testosterone in male Measles (~1966) Mixed hyperlipidemia Mumps (~1965) Sciatica of left side Seasonal allergies Sleep apnea (~2014) Stasis dermatitis Substance abuse Surgical History Anesthesia History of surgery (~2009) Mass (~2015) Family History Father Diabetes mellitus History of heart disease Hyperlipidemia Hypertension Mother Cancer Sister Sjogren's syndrome Social History household members: family Smoking Status: Former smoker Tobacco: How many years used: 40 second hand exposure: No alcohol intake: former substance use type: marijuana Meds Home Medications and Allergies Home Medications Medication Instructions Recorded Confirmed Type modafinil 200 mg tablet 400 mg PO DAILY 03/14/22 03/08/23 History brexpiprazole 4 mg tablet (Rexulti) 4 mg PO DAILY 05/02/22 03/08/23 History vilazodone 10 mg tablet 10 mg PO DAILY 10/22/22 03/08/23 History meloxicam 7.5 mg tablet 7.5 mg PO BID PRN pain (scale 12/05/22 03/08/23 Rx score 1-3) #60 tabs Allergies Allergy/AdvReac Type Severity Reaction Status Date / Time Penicillins Allergy Intermediate Hives Verified 03/08/23 07:23 Exam Vital Signs (past 8 hours): - 03/08/23 07:30 Temperature 98.6 F Pulse Rate 77 Respiratory Rate 116 H Blood Pressure 151/84 H Pulse Oximetry 98 Oxygen Delivery Method Room Air Oxygen Delivery Method Room Air Const General: No acute distress Resp Effort & Inspection: normal respiratory effort Assessment & Plan Assessment and plan (1) Colon cancer screening: Status: Acute Plan We reviewed the risks and benefits of colonoscopy for colon cancer screening. He would like to proceed.
--- NOTE | 2023-03-08 08:40 | P.OP.COLON_ITS ---
Operative Date/Time/Diagnoses Date of procedure: 03/08/23 Time of procedure: 08:40 Pre-op diagnosis: Colon cancer screening Post-op diagnosis: same Procedure & Clinicians Study performed: Colonoscopy Same procedure as scheduled: Yes Surgeon: Rickey Lofton Procedure Notes Procedure in detail: Surgeon: Rickey Lofton MD Anesthesia: Angelita Carlos DO Procedure: The patient was brought to the endoscopy suite, placed in left lateral decubitus position. The patient was connected to monitoring devices. A time-out was performed. Sedation was administered. Once the patient was adequately sedated, a digital rectal exam was performed and was normal. The scope was then inserted and advanced to the cecum where the appendiceal orifice was identified and photographed. The scope was then slowly withdrawn over greater than 6 minutes. The mucosa was thoroughly inspected. There was modera te sigmoid diverticulosis. There were 2 diminutive polyps in the distal sigmoid colon removed with the Jumbo forceps. These were sent together as ?sigmoid polyps?. The scope was retroflexed in the rectum. No other abnormalities were seen. The scope was straightened and removed. The patient was awakened and brought to recovery. Scope withdrawal time: 10 minutes Sedation time: 15 minutes EBL: 2 mL Findings: Moderate sigmoid diverticulosis and 2 diminutive polyps in the sigmoid colon. Post-procedure Disposition: PACU
--- NOTE | 2023-03-08 08:46 | SUR.PHASEI ---
0842 - Received to PACU after MAC. Report received from DUARTE Keyes and GALLO Matta.
== END 2023-03-08 09:29 | disposition home or self-care (01) ==
PROVIDERS: Family Provider Nurse Practitioner Family; PCP Registered Nurse Diabetes Educator; Referring Provider Surgery; Visit Provider Surgery
PROC: 0DJD8ZZ Inspection of Lower Intestinal Tract, Via Natural or Artificial Opening Endoscopic (ICD-10-PCS; CPT 45378; principal; 2023-03-08 08:15)
DX: Z12.11 Encounter for screening for malignant neoplasm of colon (principal); K57.30 Diverticulosis of large intestine without perforation or abscess without bleeding; K63.5 Polyp of colon
CPT/HCPCS: 45380; J2704

== ENCOUNTER → 2024-10-01 11:54 | Outpatient (CLI) | payer MEDICAID, SELFPAY ==
[2022-11-02 15:38] VITALS: BMI 36.5
[2024-10-01 12:51] LABS: Ur Creatinine Normal (Normal); Ur Specific Gravity Normal (Normal); Urine pH Normal (Normal)
[2024-10-01 12:52] LABS: UR Morphine/Opiate cutoff 300 Negative (Negative); Urine Amphetamines Negative (Negative); Urine Barbiturates Negative (Negative); Urine Benzodiazepines Negative (Negative); Urine Cocaine Negative (Negative); Urine MDMA Negative (Negative); Urine Methadone Negative (Negative); Urine Methamphetamines Negative (Negative); Urine Oxycodone Negative (Negative); Urine Phencyclidine Negative (Negative); Urine Tetrahydrocannabinol Positive (Negative); Urine Tricyclic Antidepressant Negative (Negative)
== END ==
LOC: LAB 11:56
PROVIDERS: PCP Registered Nurse Diabetes Educator; Referring Provider Student in an Organized Health Care Education/Training Program; Visit Provider Student in an Organized Health Care Education/Training Program
DX: G47.19 Other hypersomnia (principal); R53.82 Chronic fatigue, unspecified; R53.81 Other malaise
CPT/HCPCS: 36415; 80305

== ENCOUNTER 2025-01-19 22:13 | Observation (INO) | payer OTHER, SELFPAY ==
[2022-11-02 15:38] VITALS: BMI 36.5
[2025-01-19 22:16] VITALS: BP 145/84; PULSE 82; RESP 18; TEMP 37; O2SAT 99; BMI 36.8
--- NOTE | 2025-01-19 22:41 | EKG_ITS ---
[facility] [address] [address] Test Date: 2025-01-19 Pat Name: Migel Shafer Department: [facility] Room: Gender: Male Internal Communications Manager: : 1960 Requested By: Order Number: [id number] Reading MD: Terrell Renteria Measurements Intervals [place] Rate: 77 P: 46 VA: 166 QRS: -20 QRSD: 86 T: 51 QT: 372 QTc: 420 Interpretive Statements Normal sinus rhythm Electronically Signed On 01-21-2025 17:39:33 PDT by Terrell Renteria
[2025-01-19 22:42] LABS: Add Manual Diff / Slide Review NO; Basophils Absolute Auto 0 /uL (0-100); Basophils Percent Auto 0.3 % (0-2); Eosinophils Absolute Auto 100 /uL (0-450); Hematocrit 44.7 % (41-53); Hemoglobin 15.3 g/dL (13.5-17.5); Lymphocytes Absolute Auto 3100 /uL (1100-4500); Lymphocytes Percent Auto 36.7 % (25-40); Mean Corpuscular HGB Conc 34.3 % (30-36); Mean Corpuscular Hemoglobin 30.3 PG (26-34); Mean Corpuscular Volume 88.5 fL (80-100); Monocytes Absolute Auto 900 /uL (0-900); Neutrophils Absolute Auto 4400 /uL (1500-7000); Platelet Count 161 X10^3/uL (150-400); Red Blood Cell Count 5.06 X10^6/uL (4.5-5.9); Red Cell Distribution Width 14.4 % (11.6-14.8); White Blood Cell Count 8.6 X10^3/uL (4.5-11.0)
[2025-01-19 22:56] LABS: Alanine Aminotransferase 25 IU/L (<50); Albumin 4.5 g/dL (3.5-5.0); Albumin Globulin Ratio 1.7 (1.0-2.8); Alkaline Phosphatase 54 U/L (38-126); Aspartate Aminotransferase 25 IU/L (17-59); Bilirubin Total 0.5 mg/dL (0.2-1.3); Blood Urea Nitrogen 22 mg/dL (9-20); Calcium 8.9 mg/dL (8.4-10.2); Carbon Dioxide 28 mmol/L (22-32); Chloride 103 mmol/L (98-107); Estimated Glomerular Filt Rate > 60 mL/min (>60); Globulin 2.7 g/dL (1.7-4.1); Glucose 117 mg/dL (70-99); HEMOLYSIS 22 (0-50); Lipase 1890 U/L (23-300); Potassium 4.1 mmol/L (3.4-5.1); Sodium 139 mmol/L (137-145); Total Protein 7.2 g/dL (6.3-8.2)
--- NOTE | 2025-01-20 02:45 | DI.CT.S_ITS ---
PROCEDURE: CT ABDOMEN PELVIS W CON INDICATIONS: abd pain, increased lipase TECHNIQUE: After the administration of intravenous contrast, axial sections acquired from the lung bases to the pubic symphysis. Coronal and sagittal reformats were performed. For radiation dose reduction, the following was used: automated exposure control, adjustment of mA and/or kV according to patient size. COMPARISON: CT, CT ABD PELVIS W [facility], 04/17/2017, 12:09. [facility], CT, CT ABDOMEN PELVIS W CON, 11/20/2022, 12:26. FINDINGS: Image quality: Diagnostic. Lower Chest: No significant findings. ABDOMEN: Liver: No solid mass. Steatosis. Simple cyst. Gallbladder: No radiopaque gallstones or wall thickening. Biliary ducts: No biliary dilation. Pancreas: No ductal dilation. Spleen: Size is within normal limits. Adrenal Glands: No adrenal nodules. Kidneys and Ureters: No hydronephrosis. No solid mass. No complex renal cystic lesion which requires follow up. Stomach and Bowel: There is focal thickening and inflammatory change within the proximal sigmoid colon. Diverticular present. No abscess. No free air. Peritoneum: No abnormal intraperitoneal fluid. No free air. Ventral Wall: No significant ventral hernia. Abdominal Nodes: No retroperitoneal or mesenteric adenopathy by size criteria. Vessels: Aorta and inferior vena cava are normal in size. PELVIS: Pelvic Organs: Unremarkable. Bladder: No bladder wall thickening, accounting for underdistention. Pelvic Nodes: No enlarged lymph nodes. Miscellaneous: Bilateral fat containing inguinal hernias are seen. Bones: No aggressive osseous abnormality. IMPRESSION: Focal sigmoid colitis secondary to diverticulitis. No abscess. The above findings are concordant with preliminary report. Dictated by: Filomena Conley M.D. on 01/20/2025 at 6:20 Approved by: Filomena Conley M.D. on 01/20/2025 at 6:21
[2025-01-20] MEDS: SODIUM CHLORIDE 0.9% 1,000 ML 1000 ML IV (03:32)
[2025-01-20 04:00] VITALS: PULSE 76; RESP 16; O2SAT 97
--- NOTE | 2025-01-20 04:03 | ED_ITS ---
HPI - Abdominal Pain General Chief Complaint: Abdominal Pain Stated Complaint: poss diverticulitis has prior hx Time Seen by Provider: 01/20/25 02:44 Source: patient Mode of arrival: Ambulatory History of Present Illness HPI narrative: 64-year-old male with history of diverticulitis, complains of right lower quadrant area discomfort since yesterday afternoon increasing overnight. Feels similar to his previous episode of diverticulitis in terms of quality and apparently in location. Denies nausea and vomiting. Denies upper abdominal discomfort. Denies alcohol use. Denies previous gallbladder problems. Denies previous pancreatitis problems. Related Data Home Medications Medication Instructions Recorded Confirmed modafinil 200 mg tablet 400 mg PO DAILY 03/14/22 03/08/23 brexpiprazole 4 mg tablet (Rexulti) 4 mg PO DAILY 05/02/22 03/08/23 vilazodone 10 mg tablet 10 mg PO DAILY 10/22/22 03/08/23 Previous Rx's Medication Instructions Recorded meloxicam 7.5 mg tablet 7.5 mg PO BID PRN pain (scale 12/05/22 score 1-3) #60 tabs Allergies Allergy/AdvReac Type Severity Reaction Status Date / Time Penicillins Allergy Intermediate Hives Verified 03/08/23 07:23 Patient History Medical History Abnormal chest x-ray (~2016) Anxiety Benign familial tremor (~2014) Bipolar disease, chronic Chicken pox (~1969) COPD (chronic obstructive pulmonary disease) (~2017) Depression Essential tremor Fractures History of recurrent ear infection (~1964) Kidney stones (~1994) Low testosterone in male Measles (~1966) Mixed hyperlipidemia Mumps (~1965) Sciatica of left side Seasonal allergies Sleep apnea (~2014) Stasis dermatitis Substance abuse Surgical History Anesthesia History of surgery (~2009) Mass (~2015) Family History Father Diabetes mellitus History of heart disease Hyperlipidemia Hypertension Mother Cancer Sister Sjogren's syndrome Social History household members: family Smoking Status: Former smoker Tobacco: How many years used: 40 second hand exposure: No alcohol intake: former substance use type: marijuana Smoking Status: Former smoker alcohol intake frequency: 0-2 drinks per day Exam Narrative Exam Narrative: GENERAL: Well-developed patient, in mild distress. HEAD: Atraumatic. Normocephalic. EYES: Pupils equal round and reactive. Extraocular motions intact. No scleral icterus. No injection or drainage. ENT: Nose without bleeding, purulent drainage. Throat without erythema, tonsillar hypertrophy or exudate. Airway patent. NECK: Trachea midline. Non tender CARDIOVASCULAR: Regular rate and rhythm without murmurs, gallops, or rubs. RESPIRATORY: Clear to auscultation. Breath sounds equal bilaterally. No wheezes, rales, or rhonchi. GASTROINTESTINAL: Abdomen with some right lower quadrant discomfort, no guarding or rebound, seems less tender but some tenderness left lower quadrant. No obvious ventral hernia. EXTREMITIES: No edema or joint tenderness. BACK: Nontender without deformity or crepitance. No flank tenderness. NEURO: AOx3. Motor functions grossly nonfocal SKIN: No rash or erythema of visible areas Initial Vital Signs Initial Vital Signs: Vital Signs Temperature 98.6 F 01/19/25 22:16 Pulse Rate 82 01/19/25 22:16 Respiratory Rate 18 01/19/25 22:16 Blood Pressure 145/84 H 01/19/25 22:16 Pulse Oximetry 99 01/19/25 22:16 Oxygen Delivery Method Room Air 01/19/25 22:16 Course Orders Ordered: Acetaminophen (Acetaminophen 325 Mg Tablet) 650 mg PO Q6H PRN PRN Reason: Fever/Mild Pain (1-3) Hydrocodone Bitart/Acetaminophen (Hydrocodone/Acet 5/325 Tablet) 1 tab PO Q4H PRN PRN Reason: Pain, Moderate (4-6) Last Admin: 01/20/25 15:43 Dose: 1 tab Documented By: Admin: 01/20/25 09:27 Dose: 1 tab Documented By: Admin: 01/20/25 05:26 Dose: 1 tab Documented By: WAN Heparin Sodium (Porcine) (Heparin 5,000 Unit/Ml Vial) 5,000 unit SUBCUT BID KOFFI Last Admin: 01/20/25 09:27 Dose: 5,000 unit Documented By: FRANCESCA Hydromorphone HCl (Hydromorphone 0.5 Mg Inj) 0.5 mg IV Q2H PRN PRN Reason: Pain, Severe (7-10) Sodium Chloride (Normal Saline 0.9%) 1,000 mls @ 100 mls/hr IV CONT [facility] Last Admin: 01/20/25 05:41 Dose: 100 mls/hr Documented By: WAN Metronidazole (Flagyl) 500 mg in 100 mls @ 100 mls/hr IV Q6H [facility] Last Infusion: 01/20/25 18:02 Dose: Infused Documented By: Admin: 01/20/25 16:58 Dose: 100 mls/hr Documented By: Infusion: 01/20/25 12:45 Dose: Infused Documented By: Admin: 01/20/25 09:27 Dose: 100 mls/hr Documented By: FRANCSECA Ciprofloxacin (Cipro) 400 mg in 200 mls @ 200 mls/hr IV Q12H [facility] Last Admin: 01/20/25 18:02 Dose: 200 mls/hr Documented By: FRANCESCA Naloxone HCl (Naloxone 0.4 Mg/Ml Vial) 0.2 mg IV Q2MIN PRN PRN Reason: Opiate Reversal Ondansetron HCl (Ondansetron 4 Mg/2 Ml Inj) 4 mg IV Q8HR PRN PRN Reason: Nausea And Vomiting Discontinued Medications Sodium Chloride (Normal Saline 0.9%) 1,000 mls @ 1,000 mls/hr IV BOLUS ONE Stop: 01/20/25 03:44 Last Infusion: 01/20/25 04:50 Dose: Infused Documented By: Admin: 01/20/25 03:32 Dose: 1,000 mls/hr Documented By: SLAVA Ciprofloxacin (Cipro) 400 mg in 200 mls @ 200 mls/hr IV NOW ONE Stop: 01/20/25 05:04 Last Admin: 01/20/25 05:41 Dose: 200 mls/hr Documented By: WAN Metronidazole (Flagyl) 500 mg in 100 mls @ 100 mls/hr IV NOW ONE Stop: 01/20/25 05:04 Last Infusion: 01/20/25 04:59 Dose: 100 mls/hr Documented By: Admin: 01/20/25 04:25 Dose: 100 mls/hr Documented By: YONI Ciprofloxacin (Cipro) 400 mg in 200 mls @ 200 mls/hr IV Q12H [facility] Last Admin: 01/20/25 05:28 Dose: Not Given Documented By: LINA Metronidazole (Flagyl) 500 mg in 100 mls @ 100 mls/hr IV Q6H [facility] Last Admin: 01/20/25 05:29 Dose: Not Given Documented By: LINA Ciprofloxacin (Cipro) 400 mg in 200 mls @ 200 mls/hr IV Q12H [facility] Ondansetron HCl (Ondansetron 4 Mg/2 Ml Inj) 4 mg IV NOW PRN PRN Reason: Nausea And Vomiting Ondansetron HCl (Ondansetron 4 Mg Odt) 4 mg PO NOW PRN PRN Reason: Nausea And Vomiting Vital Signs Vital signs: Vital Signs - 8 hr 01/19/25 22:16 Temperature 98.6 F Pulse Rate 82 Respiratory Rate 18 Blood Pressure 145/84 H Pulse Oximetry 99 Oxygen Delivery Method Room Air MDM - Abdominal Pain Lab Data Attestation: I reviewed the patient's lab results. Lab results narrative: White blood cell count 8600, hemoglobin 15.3. Platelets adequate. BUN 22 with creatinine 1.0 unremarkable renal function. Glucose 117. Sodium 139 with potassium 4.1, serum CO2 28 normal. Liver functions normal. Lipase elevation 1890. Urine dip negative. 01/19/25 22:30 01/19/25 22:30 Labs: Lab Results 01/19/25 Range/Units 22:30 WBC 8.6 (4.5-11.0) X10^3/uL RBC 5.06 (4.5-5.9) X10^6/uL Hgb 15.3 (13.5-17.5) g/dL Hct 44.7 (41-53) % MCV 88.5 (80-100) fL MCH 30.3 (26-34) PG MCHC 34.3 (30-36) % RDW 14.4 (11.6-14.8) % Plt Count 161 (150-400) X10^3/uL Neut % (Auto) 52.0 (50-75) % Lymph % (Auto) 36.7 (25-40) % [place] % (Auto) 10.0 (3-14) % Eos % (Auto) 1.0 L (2-4) % Baso % (Auto) 0.3 (0-2) % Neut # (Auto) 4400 (3708-2397) /uL Lymph # (Auto) 3100 (1448-6787) /uL [place] # (Auto) 900 (0-900) /uL Eos # (Auto) 100 (0-450) /uL Baso # (Auto) 0 (0-100) /uL Sodium 139 (137-145) mmol/L Potassium 4.1 (3.4-5.1) mmol/L Chloride 103 (98-107) mmol/L Carbon Dioxide 28 (22-32) mmol/L BUN 22 H (9-20) mg/dL Creatinine 1.00 (0.66-1.25) mg/dL Estimated GFR > 60 (>60) mL/min BUN/Creatinine Ratio 22.0 (6-22) Glucose 117 H (70-99) mg/dL Calcium 8.9 (8.4-10.2) mg/dL Total Bilirubin 0.5 (0.2-1.3) mg/dL AST 25 (17-59) IU/L ALT 25 (<50) IU/L Alkaline Phosphatase 54 (38-126) U/L Total Protein 7.2 (6.3-8.2) g/dL Albumin 4.5 (3.5-5.0) g/dL Globulin 2.7 (1.7-4.1) g/dL Albumin/Globulin Ratio 1.7 (1.0-2.8) Lipase 1890 H (23-300) U/L Point of care testing: Urine Dip Bedside Urine Glucose Negative Bedside Urine Bilirubin - Negative Bedside Urine Ketone - Negative Urine Specific [place] 1.005 Bedside Urine Occult Blood - Negative Bedside Urine pH 6.0 Bedside Urine Protein - Negative Bedside Urine Urobilinogen - Negative Bedside Urine Nitrite - Negative Bedside Urine Leukocytes - Negative Esterase ECG Data Attestation: I personally reviewed and interpreted this ECG as follows: Interpretation: Normal sinus rhythm with a rate of 77, no obvious ST segment elevation or depression changes. NH 166, QRS 86, QTC 420. [facility] Narrative Medical decision making narrative: 64-year-old male with history of diverticulitis, has right lower quadrant abdominal discomfort typical of his previous event, no recent antibiotics. Afebrile, sirs screen negative. Some tenderness right lower quadrant on examination, less so left lower quadrant. EKG unremarkable. Screening labs pending. White blood cell count not elevated, LFTs normal. Lipase 1890 elevated. Urine dip negative. Renal function adequate. CT abdomen and pelvis ordered. CT abdomen and pelvis with IV contrast. Impressions: ?Findings compatible with acute diverticulitis along the mid sigmoid colon. No pericolonic focal drainable collection or pneumoperitoneum. Recommend colonoscopy to ensure no underlying mass after treatment. Incidental findings.. see teleradiology report History of penicillin allergy noted. IV Ciprofloxacin, IV Flagyl for diverticulitis coverage. Lipase elevation of unclear etiology, on report there is no mention of any pancreatic inflammatory changes. Consider admission, we will contact hospitalist. [phone], case discussed with hospitalist Dr. García who accepts patient for admission. Critical Care Time Critical Care Time Critical Care Time: Yes Total Critical Care Time: 35 Attestation: The high probability of a clinically significant, sudden or life threatening deterioration of the [genitourinary, abdominopelvic] system(s) required my full and direct attention, intervention and personal management. The aggregate critical care time was [35] minutes. This time is in addition to time spent performing reported procedures but includes the following: [x] Data Review and interpretation [x] Patient assessment and monitoring of vital signs [x] Documentation [x] Medication orders and management Discharge Plan Departure Patient Disposition: Admitted As Inpatient Clinical Impression: Diverticulitis, Elevated lipase Admit Date/Time: 01/20/25 04:29 Admit Provider: Brayan Salvador
[2025-01-20 04:25] VITALS: BP 143/77
[2025-01-20] MEDS: metroNIDAZOLE 500 MG/100 ML PIGGYBACK 100 MG IV ×4 (04:25→22:47)
[2025-01-20 04:30] VITALS: BP 129/81; PULSE 72; RESP 16; O2SAT 97
--- NOTE | 2025-01-20 04:51 | PM.HP.1 ---
History of Present Illness History of Present Illness Chief complaint: poss diverticulitis has prior hx Narrative: 64-year-old male with past medical history of diabetes mellitus, anxiety, COPD not oxygen dependent, depression, essential tremor tremor, bipolar disease hyperlipidemia and obstructive sleep apnea presents with complaint of abdominal pain. Per the patient report, starting yesterday, the patient started to have right lower quadrant abdominal pain. The patient states that his pain is similar to his diverticulitis in the past. The patient's that is sharp, nonradiating, moderate in severity and admitted to have some nausea with it. The patient otherwise denies any fever, chills, chest pain, vomiting, diarrhea, GI bleeding, chest pain, shortness of breath or syncope. The patient also denies any alcohol intake. In the emergency room, the patient was hemodynamically stable. WBC was normal. LFTs and bilirubin are negative. Lipase however was 1800. CT abdomen shows signs of diverticulitis with no signs of inflammation of the pancreas. The patient was given ciprofloxacin and Flagyl and request for admission. [facility] Medical History Abnormal chest x-ray (~2017) Anxiety Benign familial tremor (~2014) Bipolar disease, chronic Chicken pox (~1969) COPD (chronic obstructive pulmonary disease) (~2017) Depression Essential tremor Fractures History of recurrent ear infection (~1964) Kidney stones (~1994) Low testosterone in male Measles (~1966) Mixed hyperlipidemia Mumps (~1965) Sciatica of left side Seasonal allergies Sleep apnea (~2014) Stasis dermatitis Substance abuse Surgical History Anesthesia History of surgery (~2009) Mass (~2016) Family History Father Diabetes mellitus History of heart disease Hyperlipidemia Hypertension Mother Cancer Sister Sjogren's syndrome Social History household members: family Smoking Status: Former smoker Tobacco: How many years used: 40 second hand exposure: No alcohol intake: former substance use type: marijuana Meds Home Medications and Allergies Home Medications Medication Instructions Recorded Confirmed Type modafinil 200 mg tablet 400 mg PO DAILY 03/14/22 03/08/23 History brexpiprazole 4 mg tablet (Rexulti) 4 mg PO DAILY 05/02/22 03/08/23 History vilazodone 10 mg tablet 10 mg PO DAILY 10/22/22 03/08/23 History meloxicam 7.5 mg tablet 7.5 mg PO BID PRN pain (scale 12/05/22 03/08/23 Rx score 1-3) #60 tabs Allergies Allergy/AdvReac Type Severity Reaction Status Date / Time Penicillins Allergy Intermediate Hives Verified 03/08/23 07:23 Review of Systems Review of Systems ROS: Yes All systems reviewed with the patient and are negative except as otherwise documented Exam Vital Signs (past 8 hours): - 01/19/25 22:16 01/20/25 04:00 01/20/25 04:25 Temperature 98.6 F Pulse Rate 82 76 Respiratory Rate 18 16 Blood Pressure 145/84 H 143/77 H Pulse Oximetry 99 97 Oxygen Delivery Method Room Air Room Air 01/20/25 04:30 01/20/25 04:30 Temperature Pulse Rate 72 Respiratory Rate 16 Blood Pressure 129/81 Pulse Oximetry 97 Oxygen Delivery Method Room Air Oxygen Delivery Method Room Air Narrative Exam Narrative: Physical Exam: GENERAL: The patient is not in any acute distressed. Awake and alert. HEENT: Nonicteric sclerae, PERRLA, EOMI. Oropharynx clear. Moist mucous membranes. Conjunctivae appear well perfused. HEART: Regular rate and rhythm without murmurs. No lower extremities edema. LUNGS: Clear to auscultation bilaterally. No wheezing, crackles or rhonchi ABDOMEN: Soft, positive bowel sounds, nontender. SKIN: No rash, no excessive bruising, petechiae, or purpura. NEUROLOGIC: AxO x 3. Cranial nerves II-XII intact without motor/sensory deficit. Objective Labs 01/19/25 22:30 01/19/25 22:30 Labs: Laboratory Results - last 24 hr 01/19/25 22:30 WBC 8.6 RBC 5.06 Hgb 15.3 Hct 44.7 MCV 88.5 MCH 30.3 MCHC 34.3 RDW 14.4 Plt Count 161 Neut % (Auto) 52.0 Lymph % (Auto) 36.7 [place] % (Auto) 10.0 Eos % (Auto) 1.0 L Baso % (Auto) 0.3 Neut # (Auto) 4400 Lymph # (Auto) 3100 [place] # (Auto) 900 Eos # (Auto) 100 Baso # (Auto) 0 Sodium 139 Potassium 4.1 Chloride 103 Carbon Dioxide 28 BUN 22 H Creatinine 1.00 Estimated GFR > 60 BUN/Creatinine Ratio 22.0 Glucose 117 H Calcium 8.9 Total Bilirubin 0.5 AST 25 ALT 25 Alkaline Phosphatase 54 Total Protein 7.2 Albumin 4.5 Globulin 2.7 Albumin/Globulin Ratio 1.7 Lipase 1890 H Assessment & Plan Assessment & Plan narrative: Diverticulitis. Admit the patient to medical inpatient. Of note patient has no signs of sepsis at this point. CT scan showed no perforation or abscess. Continue IV Flagyl and ciprofloxacin. Monitor for sepsis. Possible pancreatitis. The patient denies any alcohol intake. The patient lipase is 2800. N.p.o. with IV fluid. Pain control as needed. Dehydration. IV fluid. DVT prophylaxis heparin subcu. CODE STATUS full code. Disposition 1 to 2 days. - As the provider of this telehealth evaluation, requested by the patient's evaluating physician, I attest that I introduced myself to the patient, provided my credentials and determined that telemedicine via a real-time, 2 way interactive audio and video platform is an appropriate and effective means of providing this service. - I reviewed the patient's chart and had a discussion with the member of the patient's treatment team. - The patient and I mutually agreed with continuation of this evaluation via telemedicine. The patient consented for the telemedicine evaluation. - This virtual encounter was taken place from [place]. The encounter was approximately 35 minutes. The nurse was present during the entire time of the encounter and was able to move the stethoscope in appropriate directions. The patient was evaluated at [facility]. Time-Based Coding :: [TOTAL MINUTES] spent with patient and on the chart (including review of chart, obtaining history, exam, reviewing outside data, placing orders, documenting exam and treatment plan, and counseling patient) on [DATE].
[2025-01-20 05:00] VITALS: BP 152/98; PULSE 72; RESP 19; TEMP 36.6; O2SAT 95
[2025-01-20] MEDS: HYDROCODONE/ACET 5/325 TABLET 1 TAB PO ×4 (05:26→20:53)
[2025-01-20] MEDS: CIPROFLOXACIN 400 MG/200 ML PIGGYBACK 200 MG IV ×2 (05:41→18:02)
[2025-01-20] MEDS: SODIUM CHLORIDE 0.9% 1,000 ML 100 ML IV ×2 (05:41→20:58)
[2025-01-20 05:47] VITALS: BMI 34.7
[2025-01-20 08:00] VITALS: BP 135/84; PULSE 78; RESP 21; TEMP 36.7; O2SAT 95
[2025-01-20] MEDS: HEPARIN 5,000 UNIT/ML VIAL 5000 UNIT SUBCUT ×2 (09:27→20:54)
--- NOTE | 2025-01-20 12:23 | P.HP_ITS ---
History of Present Illness History of Present Illness Date Patient Seen: 01/20/25 Time Patient Seen: 09:30 Chief complaint: poss diverticulitis has prior hx Narrative: Per overnight provider, 64-year-old male with past medical history of diabetes mellitus, anxiety, COPD, depression, essential tremor tremor, bipolar disease hyperlipidemia and obstructive sleep apnea presents with complaint of abdominal pain. Per the patient report, starting yesterday, the patient started to have right lower quadrant abdominal pain. The patient states that his pain is similar to his diverticulitis in the past. The patient's that is sharp, nonradiating, moderate in severity and admitted to have some nausea with it. The patient otherwise denies any fever, chills, chest pain, vomiting, diarrhea, GI bleeding, chest pain, shortness of breath or syncope. The patient also denies any alcohol intake. In the emergency room, the patient was hemodynamically stable. WBC was normal. LFTs and bilirubin are negative. Lipase however was 1800. CT abdomen shows signs of diverticulitis with no signs of inflammation of the pancreas. The patient was given ciprofloxacin and Flagyl and request for admission. Interval history: Continues to have RLQ pain occasionally severe. He tolerated some breakfast this morning. Last bowel movement was yesterday, denies diarrhea. No epigastric pain, back pain, nausea or vomiting this morning. [facility] Medical History Abnormal chest x-ray (~2016) Anxiety Benign familial tremor (~2014) Bipolar disease, chronic Chicken pox (~1969) COPD (chronic obstructive pulmonary disease) (~2017) Depression Essential tremor Fractures History of recurrent ear infection (~1964) Kidney stones (~1994) Low testosterone in male Measles (~1966) Mixed hyperlipidemia Mumps (~1965) Sciatica of left side Seasonal allergies Sleep apnea (~2014) Stasis dermatitis Substance abuse Surgical History Anesthesia History of surgery (~2009) Mass (~2015) Family History Father Diabetes mellitus History of heart disease Hyperlipidemia Hypertension Mother Cancer Sister Sjogren's syndrome Social History household members: family Smoking Status: Former smoker Tobacco: How many years used: 40 second hand exposure: No alcohol intake: former substance use type: marijuana Meds Home Medications and Allergies Home Medications Medication Instructions Recorded Confirmed Type modafinil 200 mg tablet 400 mg PO DAILY 03/14/22 03/08/23 History brexpiprazole 4 mg tablet (Rexulti) 4 mg PO DAILY 05/02/22 03/08/23 History vilazodone 10 mg tablet 10 mg PO DAILY 10/22/22 03/08/23 History meloxicam 7.5 mg tablet 7.5 mg PO BID PRN pain (scale 12/05/22 03/08/23 Rx score 1-3) #60 tabs Allergies Allergy/AdvReac Type Severity Reaction Status Date / Time Penicillins Allergy Intermediate Hives Verified 03/08/23 07:23 Review of Systems Review of Systems Narrative: All other systems reviewed with the patient and are negative unless otherwise stated. Exam Vital Signs (past 8 hours): - 01/20/25 04:25 01/20/25 04:30 01/20/25 04:30 Temperature Pulse Rate 72 Respiratory Rate 16 Blood Pressure 143/77 H 129/81 Pulse Oximetry 97 Oxygen Delivery Method Room Air Oxygen Flow Rate 01/20/25 05:00 01/20/25 08:00 Temperature 97.8 F 98.1 F Pulse Rate 72 78 Respiratory Rate 19 21 Blood Pressure 152/98 H 135/84 Pulse Oximetry 95 95 Oxygen Delivery Method Oxygen Flow Rate 0 Oxygen Delivery Method Room Air Oxygen Flow Rate 0 Narrative Exam Narrative: General:? Patient is well developed and well nourished, in no distress at this time. Lungs:? CTA b/l no wheezing rhonchi or rales. Cardio:?RRR no m/r/g. Abdomen: soft, tender RLQ with minimal palpation, non-distended Extremities: No edema or joint effusions. No cyanosis or clubbing. Neuro:? Alert and orientated x3,? sensation to touch intact in all extremities, no gross deficits noted of cranial nerves. Psych:? Patient has a well-kept appearance, appropriate affect, mental status attitude thought context and judgment are appropriate for age. Objective ECG Impression: Normal sinus rhythm, no evidence of acute ischemia. Labs 01/19/25 22:30 01/19/25 22:30 Labs: Laboratory Results - last 24 hr 01/19/25 22:30 WBC 8.6 RBC 5.06 Hgb 15.3 Hct 44.7 MCV 88.5 MCH 30.3 MCHC 34.3 RDW 14.4 Plt Count 161 Neut % (Auto) 52.0 Lymph % (Auto) 36.7 [place] % (Auto) 10.0 Eos % (Auto) 1.0 L Baso % (Auto) 0.3 Neut # (Auto) 4400 Lymph # (Auto) 3100 [place] # (Auto) 900 Eos # (Auto) 100 Baso # (Auto) 0 Sodium 139 Potassium 4.1 Chloride 103 Carbon Dioxide 28 BUN 22 H Creatinine 1.00 Estimated GFR > 60 BUN/Creatinine Ratio 22.0 Glucose 117 H Calcium 8.9 Total Bilirubin 0.5 AST 25 ALT 25 Alkaline Phosphatase 54 Total Protein 7.2 Albumin 4.5 Globulin 2.7 Albumin/Globulin Ratio 1.7 Lipase 1890 H Assessment & Plan Assessment & Plan narrative: Acute diverticulitis, POA - continue ciprofloxacin and metronidazole IV - okay for diet today - had colonoscopy in 2022 with 2 polyps, recommend appropriate follow up after discharge. - continues to have severe RLQ pain, but no leukocytosis. Will continue IV antibiotics given severe pain. Elevated lipase - abdominal pain not consistent with pancreatitis, nor CT findings of pancreatic inflammation - possibly drug related - no further evaluation at this time Code: Full, surrogate is patient's spouse DVT: HSQ I have utilized all available immediate resources to obtain, update, or review the patient's current medications. Dispo: patient admitted under inpatient status. Likely discharge home in 2 days, depending on response to antibiotics. Additional history obtained via discussions with the overnight hospitalist. These discussions contributed to the creation of the above assessment and plan. I have reviewed patient's presenting documentation, labs, and imaging personally. Quality VTE Deep Vein Thrombosis/Pulmonary Embolism Present on Admission: No
--- NOTE | 2025-01-20 15:42 | CM.DANOTE ---
B DCP Assessment Note pt is a 64yo M admitted with diverticulitis. past medical history of diabetes mellitus, anxiety, COPD, depression, essential tremor tremor, bipolar disease hyperlipidemia and obstructive sleep apnea PCP Ted Oneill Payer [employer] and self pay [employer]ATION [employer]INEER reviewed EMR per provider in morning rounds, pt in significant pain. ISIDRO in a day or two. Per RN/provider, no obvious CM needs. COMPRESSOR STATION ENGINEER entered room and introduced self and role. pt resting in bed. reports living with mom in [place], indep/drives/no DME. Denies any CM needs. plans to drive self home at dc. P: home when medically stable. transport with self in POV. CM team to alert TCM at dc. will continue to follow in case any DCP needs arise. DAHIANA Brown Discharge Planning/Care Management CM Discharge Assessment Start: 01/20/25 15:41 Freq: Status: Active Protocol: Document 01/20/25 15:41 SL (Rec: 01/20/25 15:42 SL Desktop) Discharge Planning Assessment Assigned Correctional Sergeant DAHIANA Thomas DPOA/Assigned Designee Name zhanna Bar Contact Information [phone] Advance Directives? No Advance Directives on File No History Provided By Patient Prior Living Arrangements House Household Members family Type of transporation used prior to Drives own vehicle admit Independent with ADL's Yes Is patient alert and oriented? Yes Discharge Plan Home Referrals Initiated None needed Review Status In Process Please Provide Date Initial DC 01/20/25 Assessment Was Performed Next Review Type Continued Stay Review
[2025-01-20 20:00] VITALS: BP 130/87; PULSE 71; RESP 20; TEMP 36.8; O2SAT 96
[2025-01-21] MEDS: metroNIDAZOLE 500 MG/100 ML PIGGYBACK 100 MG IV ×2 (05:00→09:54)
[2025-01-21 06:14] LABS: Add Manual Diff / Slide Review NO; Basophils Absolute Auto 0 /uL (0-100); Basophils Percent Auto 0.3 % (0-2); Eosinophils Absolute Auto 100 /uL (0-450); Eosinophils Percent Auto 1.7 % (2-4); Hematocrit 39.1 % (41-53); Hemoglobin 13.4 g/dL (13.5-17.5); Lymphocytes Absolute Auto 2200 /uL (1100-4500); Lymphocytes Percent Auto 42.9 % (25-40); Mean Corpuscular HGB Conc 34.2 % (30-36); Mean Corpuscular Hemoglobin 30.3 PG (26-34); Mean Corpuscular Volume 88.6 fL (80-100); Monocytes Absolute Auto 500 /uL (0-900); Monocytes Percent Auto 9.7 % (3-14); Neutrophils Absolute Auto 2300 /uL (1500-7000); Neutrophils Percent Auto 45.4 % (50-75); Platelet Count 135 X10^3/uL (150-400); Red Blood Cell Count 4.42 X10^6/uL (4.5-5.9); Red Cell Distribution Width 14.5 % (11.6-14.8)
[2025-01-21] MEDS: CIPROFLOXACIN 400 MG/200 ML PIGGYBACK 200 MG IV (06:19)
[2025-01-21] MEDS: HYDROCODONE/ACET 5/325 TABLET 1 TAB PO (06:20)
[2025-01-21 06:37] LABS: Alanine Aminotransferase 20 IU/L (<50); Albumin 3.6 g/dL (3.5-5.0); Albumin Globulin Ratio 1.6 (1.0-2.8); Alkaline Phosphatase 50 U/L (38-126); Aspartate Aminotransferase 22 IU/L (17-59); BUN Creatinine Ratio 18.2 (6-22); Bilirubin Total 0.5 mg/dL (0.2-1.3); Blood Urea Nitrogen 16 mg/dL (9-20); Calcium 8.5 mg/dL (8.4-10.2); Carbon Dioxide 28 mmol/L (22-32); Chloride 106 mmol/L (98-107); Estimated Glomerular Filt Rate > 60 mL/min (>60); Globulin 2.3 g/dL (1.7-4.1); Glucose 87 mg/dL (70-99); HEMOLYSIS < 15 (0-50); Potassium 3.9 mmol/L (3.4-5.1); Sodium 137 mmol/L (137-145); Total Protein 5.9 g/dL (6.3-8.2)
--- NOTE | 2025-01-21 09:42 | P.DS_ITS ---
History of Present Illness History of Present Illness Date Patient Seen: 01/21/25 Time Patient Seen: 09:42 Chief complaint: poss diverticulitis has prior hx Narrative: Per overnight provider, 64-year-old male with past medical history of diabetes mellitus, anxiety, COPD, depression, essential tremor tremor, bipolar disease hyperlipidemia and obstructive sleep apnea presents with complaint of abdominal pain. Per the patient report, starting yesterday, the patient started to have right lower quadrant abdominal pain. The patient states that his pain is similar to his diverticulitis in the past. The patient's that is sharp, nonradiating, moderate in severity and admitted to have some nausea with it. The patient otherwise denies any fever, chills, chest pain, vomiting, diarrhea, GI bleeding, chest pain, shortness of breath or syncope. The patient also denies any alcohol intake. In the emergency room, the patient was hemodynamically stable. WBC was normal. LFTs and bilirubin are negative. Lipase however was 1800. CT abdomen shows signs of diverticulitis with no signs of inflammation of the pancreas. The patient was given ciprofloxacin and Flagyl and request for admission. Interval history: Continues to have RLQ pain occasionally severe. He tolerated some breakfast this morning. Last bowel movement was yesterday, denies diarrhea. No epigastric pain, back pain, nausea or vomiting this morning. Discharge Providers Provider Date of admission: 01/20/25 04:29 Discharge Date: 01/21/25 Primary care physician: SERENITY Jose Discharge provider: Terrell Renteria DO Summary Hospital Course Discharge Diagnosis: Acute diverticulitis, POA Elevated lipase Hospital Course: This is a 64 year old male with PMH of diverticulitis who was admitted with RLQ pain and diverticulitis. Patient had previous colonoscopy in 2022 with 2 polyps. He was started on ciprofloxacin and metronidazole with improvement in his abdominal pain after a couple of days. He had no leukocytosis on admission. Incidentally he had an elevated lipase but no evidence otherwise of pancreatitis. After improvement in abdominal pain, the patient was tolerating a diet and ambulatory, stable for discharge home. Recommend guideline directed follow up colonoscopy in 5-10 years given prior C-scope in 2022 with 2 polyps. Time Spent with Patient Time spent: Greater than 30 minutes Exam Vital Signs (past 8 hours): Oxygen Delivery Method Room Air Oxygen Flow Rate 0 Narrative Exam Narrative: General:? Patient is well developed and well nourished, in no distress at this time. Lungs:? CTA b/l no wheezing rhonchi or rales. Cardio:?RRR no m/r/g. Abdomen: soft, tender RLQ with minimal palpation, non-distended Extremities: No edema or joint effusions. No cyanosis or clubbing. Neuro:? Alert and orientated x3,? sensation to touch intact in all extremities, no gross deficits noted of cranial nerves. Psych:? Patient has a well-kept appearance, appropriate affect, mental status attitude thought context and judgment are appropriate for age. Objective Labs 01/21/25 06:01 01/21/25 06:01 Labs: Laboratory Results - last 24 hr 01/21/25 06:01 WBC 5.0 RBC 4.42 L Hgb 13.4 L Hct 39.1 L MCV 88.6 MCH 30.3 MCHC 34.2 RDW 14.5 Plt Count 135 L Neut % (Auto) 45.4 L Lymph % (Auto) 42.9 H Mineral % (Auto) 9.7 Eos % (Auto) 1.7 L Baso % (Auto) 0.3 Neut # (Auto) 2300 Lymph # (Auto) 2200 Mineral # (Auto) 500 Eos # (Auto) 100 Baso # (Auto) 0 Sodium 137 Potassium 3.9 Chloride 106 Carbon Dioxide 28 BUN 16 Creatinine 0.88 Estimated GFR > 60 BUN/Creatinine Ratio 18.2 Glucose 87 Calcium 8.5 Total Bilirubin 0.5 AST 22 ALT 20 Alkaline Phosphatase 50 Total Protein 5.9 L Albumin 3.6 Globulin 2.3 Albumin/Globulin Ratio 1.6 [facility] Medical History Abnormal chest x-ray (~2017) Anxiety Benign familial tremor (~2014) Bipolar disease, chronic Chicken pox (~1969) COPD (chronic obstructive pulmonary disease) (~2017) Depression Essential tremor Fractures History of recurrent ear infection (~1964) Kidney stones (~1994) Low testosterone in male Measles (~1966) Mixed hyperlipidemia Mumps (~1965) Sciatica of left side Seasonal allergies Sleep apnea (~2014) Stasis dermatitis Substance abuse Surgical History Anesthesia History of surgery (~2009) Mass (~2016) Family History Father Diabetes mellitus History of heart disease Hyperlipidemia Hypertension Mother Cancer Sister Sjogren's syndrome Social History household members: family Smoking Status: Former smoker Tobacco: How many years used: 40 second hand exposure: No alcohol intake: former substance use type: marijuana Discharge Plan Discharge Plan Patient Disposition: Home Provider Discharge Comment: You were admitted to the hospital with diverticulitis, improving with antibiotics. Continue antibiotics at home for another 7 days. A few days of pain medication were also sent to your pharmacy. Discharge orders & Medications Prescriptions: New hydrocodone-acetaminophen 5-325 mg Tablet 1 tab PO Q4H PRN (Reason: Pain, Moderate (4-6)) 7 Days Qty: 20 0RF ciprofloxacin HCl 500 mg tablet 500 mg PO BID 7 Days Qty: 14 0RF metronidazole 500 mg tablet 500 mg PO TID 7 Days Qty: 21 0RF Continued modafinil 200 mg tablet 400 mg PO DAILY Rexulti 4 mg tablet 4 mg PO DAILY Rx Instructions: administer on day 8 for starting therapy meloxicam 7.5 mg tablet 7.5 mg PO BID PRN (Reason: pain (scale score 1-3)) Qty: 60 2RF vilazodone 10 mg tablet 10 mg PO DAILY Patient Comments: TAKE ONE TABLET BY MOUTH ONE TIME DAILY Follow up/Referrals: Ted Oneill ARNP [Primary Care Provider] - Diet/Activity/Treatments Diet: Diet as Tolerated and Regular Diet comment: No restrictions Activity: As tolerated, no restrictions. Visit Report/Discharge Packet Instructions: DI for Prescription Opioid Use, How to Use Antibiotics Wisely Stand Alone Forms: Patient Portal/API, Stroke Signs & Symptoms Discharge Data Primary Care Provider: Ted Oneill Quality VTE Deep Vein Thrombosis/Pulmonary Embolism Present on Admission: No
--- NOTE | 2025-01-21 11:24 | CM.DPNOTE ---
DCP Cont Reviewed chart. Patient discussed in multidisciplinary rounds. Discharge order has been placed for patient's return home today. Plan remains discharge home w/family and close outpatient follow up. CM team following clinical course closely in case any discharge needs or concerns arise. JW
--- NOTE | 2025-01-21 11:44 | PC.NURSE ---
Patient d/c teaching done w/ patient at bedside. IV d/c'd, pt tolerated well. Patient indep. w/ dressing and walked down to private vehicle w/ nurse. Patient drove self in. Pt left in stable condition, aware of rx's sent to pharm and encouraged to fern picker today.
== END 2025-01-21 11:47 | disposition home or self-care (01) | DRG 244 ==
LOC: ED 01-20 02:44 → AC 01-20 04:43
PROVIDERS: Admitting Provider Internal Medicine; Emergency Provider Emergency Medicine; PCP Registered Nurse Diabetes Educator; Referring Provider Emergency Medicine; Visit Provider Internal Medicine
DX: K57.92 Diverticulitis of intestine, part unspecified, without perforation or abscess without bleeding (principal); R79.89 Other specified abnormal findings of blood chemistry; E11.9 Type 2 diabetes mellitus without complications; F41.9 Anxiety disorder, unspecified; E86.0 Dehydration; J44.9 Chronic obstructive pulmonary disease, unspecified; Z87.891 Personal history of nicotine dependence; F31.9 Bipolar disorder, unspecified; G25.0 Essential tremor; G47.33 Obstructive sleep apnea (adult) (pediatric); E78.2 Mixed hyperlipidemia; Z83.3 Family history of diabetes mellitus; Z83.49 Family history of other endocrine, nutritional and metabolic diseases; Z88.0 Allergy status to penicillin
CPT/HCPCS: 36415; 74177; 80053; 81003; 83690; 85025; 87040; 93005; 96361; 96365; 99284; 99291; G0378; J0744; J1644; Q9967

== ENCOUNTER → 2025-03-24 06:58 | Outpatient (CLI) | payer OTHER, SELFPAY ==
[2025-03-24 07:37] LABS: Add Manual Diff / Slide Review NO; Hematocrit 44.3 % (41-53); Hemoglobin 14.9 g/dL (13.5-17.5); Lymphocytes Absolute Auto 3000 /uL (1100-4500); Mean Corpuscular HGB Conc 33.6 % (30-36); Mean Corpuscular Hemoglobin 29.9 PG (26-34); Mean Corpuscular Volume 89.2 fL (80-100); Platelet Count 149 X10^3/uL (150-400)
[2025-03-24 07:54] LABS: Alanine Aminotransferase 20 IU/L (<50); Albumin 4.3 g/dL (3.5-5.0); Albumin Globulin Ratio 1.8 (1.0-2.8); Alkaline Phosphatase 59 U/L (38-126); Blood Urea Nitrogen 21 mg/dL (9-20); Calcium 8.9 mg/dL (8.4-10.2); Carbon Dioxide 25 mmol/L (22-32); Chloride 107 mmol/L (98-107); Cholesterol 234 mg/dL (140-199); Estimated Glomerular Filt Rate > 60 mL/min (>60); Globulin 2.4 g/dL (1.7-4.1); Glucose 90 mg/dL (70-99); HDL Cholesterol 60 mg/dL (40-60); HEMOLYSIS < 15 (0-50); Lipase 1496 U/L (23-300); Potassium 4.1 mmol/L (3.4-5.1); Sodium 139 mmol/L (137-145); Total Protein 6.7 g/dL (6.3-8.2); Triglycerides 101 mg/dL (35-150)
[2025-03-24 08:27] LABS: TSH w/ Reflex to FT4 1.36 uIU/mL (0.47-4.68)
== END ==
PROVIDERS: PCP Registered Nurse Diabetes Educator; Referring Provider Registered Nurse Diabetes Educator; Visit Provider Registered Nurse Diabetes Educator
DX: Z00.00 Encounter for general adult medical examination without abnormal findings (principal); R74.8 Abnormal levels of other serum enzymes; E78.5 Hyperlipidemia, unspecified
CPT/HCPCS: 36415; 80053; 80061; 83690; 84443; 85025

== ENCOUNTER → 2025-07-30 08:00 | Outpatient (CLI) | payer OTHER, SELFPAY ==
[2025-07-30 08:55] LABS: Alanine Aminotransferase 24 IU/L (<50); Albumin 4.2 g/dL (3.5-5.0); Albumin Globulin Ratio 1.7 (1.0-2.8); Alkaline Phosphatase 64 U/L (38-126); Cholesterol 172 mg/dL (140-199); Globulin 2.5 g/dL (1.7-4.1); HDL Cholesterol 65 mg/dL (40-60); HEMOLYSIS < 15 (0-50); Total Protein 6.7 g/dL (6.3-8.2); Triglycerides 118 mg/dL (35-150)
== END ==
PROVIDERS: PCP Registered Nurse Diabetes Educator; Referring Provider Registered Nurse Diabetes Educator; Visit Provider Registered Nurse Diabetes Educator
DX: E78.5 Hyperlipidemia, unspecified (principal); B35.1 Tinea unguium
CPT/HCPCS: 36415; 80061; 80076